=== PATIENT | male | born 1965 | race Caucasian/White ===

== ENCOUNTER → 2019-03-08 | Outpatient (CLI) | payer OTHER ==
[~2019-03-08] MED LIST: AMMONIUM LACTA227 GM T; BUMETANIDE1 MG PO; CARDIZEM30 MG PO; COREG25 MG PO; DIGOX125 MCG PO; DILTIAZEM CD240 MG PO; ELIQUIS5 M1 PO; KLOR-CON M1010 ME1 PO; LASIX40 MG PO; LEVAQUIN750 M1 PO; LISINOPRIL20 MG PO; MAGNESIUM OXID400 MG PO; METOPROLOL TAR100 M1 PO; METOPROLOL TART50 M1 PO; MINERAL OIL HEAV1 ML MC; NATURE'S BLEND F1 MG PO; POTASSIUM CHLO10 ME5 PO; POTASSIUM CHLO20 ME4 PO; PREDNISONE10 MG PO; VITAMIN B150 MG PO; Vitamin D PO
[2019-03-08 11:27] LABS: BASO % 0.6 % (0.0-1.0); EOS # 0.3 10*3/uL (0.0-0.4); EOS % 8.3 % (1.0-4.0); HEMATOCRIT 28.6 % (42.0-52.0); HEMOGLOBIN 8.9 g/dl (14.0-18.0); LYMPH % 29.6 % (27.0-41.0); MEAN CELL VOLUME 101.1 fl (80.0-94.0); MEAN CORPUSCULAR HGB 31.4 pg (27.0-31.0); MEAN CORPUSCULAR HGB CONC 31.1 g/dl (33.0-37.0); MEAN PLATELET VOLUME 10.2 fl (9.6-12.3); MONO # 0.5 10*3/uL (0.1-1.0); MONO % 14.9 % (3.0-9.0); NEUT # 1.6 10*3/uL (2.3-7.9); NEUT % 46.3 % (47.0-73.0); PLATELET COUNT AUTOMATED 116 10*3/uL (130-400); RED BLOOD COUNT 2.83 10*6/uL (4.50-5.90); RED CELL DISTRI WIDTH 14.5 % (0-14.5); WHITE BLOOD COUNT 3.5 10*3/uL (4.8-10.8)
[2019-03-08 11:47] LABS: CREATININE 1.51 mg/dL (0.70-1.30); POTASSIUM 5.1 mmol/L (3.5-5.1)
[2019-03-08 12:05] LABS: DIGOXIN 0.44 ng/ml (0.8-2.0)
== END | disposition home or self-care (01) ==
LOC: LAB 10:49
PROVIDERS: Internal Medicine
DX: E87.6 Hypokalemia (principal); E83.42 Hypomagnesemia; D53.9 Nutritional anemia, unspecified; I50.9 Heart failure, unspecified; R73.9 Hyperglycemia, unspecified

== ENCOUNTER → 2019-03-15 | Outpatient (CLI) | payer MEDICAID ==
[2019-03-15 13:39] LABS: HEMATOCRIT 27.5 % (42.0-52.0); HEMOGLOBIN 8.8 g/dl (14.0-18.0); MEAN CELL VOLUME 98.6 fl (80.0-94.0); MEAN CORPUSCULAR HGB 31.5 pg (27.0-31.0); MEAN PLATELET VOLUME 9.8 fl (9.6-12.3); PLATELET COUNT AUTOMATED 115 10*3/uL (130-400); RED BLOOD COUNT 2.79 10*6/uL (4.50-5.90); RED CELL DISTRI WIDTH 14.3 % (0-14.5); WHITE BLOOD COUNT 4.7 10*3/uL (4.8-10.8)
[2019-03-15 13:51] LABS: CREATININE 1.5 mg/dL (0.70-1.30); PHOSPHOROUS 4.2 mg/dL (2.5-4.9); POTASSIUM 4.5 mmol/L (3.5-5.1)
[2019-03-15 14:06] LABS: BASOPHILS 4 % (0-1); OVALOCYTES FEW; PLATELET SUFFICIENCY LOW (NORMAL); TOTAL CELLS COUNTED 100 #CELLS
== END | disposition home or self-care (01) ==
LOC: LAB 13:07
PROVIDERS: Nurse Practitioner Family
DX: E87.6 Hypokalemia (principal); E83.42 Hypomagnesemia; N17.9 Acute kidney failure, unspecified; D69.6 Thrombocytopenia, unspecified; D72.829 Elevated white blood cell count, unspecified; R94.4 Abnormal results of kidney function studies

== ENCOUNTER 2019-04-09 18:47 | Inpatient (IN) | payer MEDICAID ==
[2019-04-09] VITALS (7 sets, daily range): BP systolic 96–126; BP diastolic 26–59
[~2019-04-09] VITALS: Ht 160 cm; Wt 134.1 kg
--- NOTE | ~2019-04-09 | EKG ---
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1965 Requested By: SULEMAN KIRK Order Number: [id number] Reading MD: Sharath Ramírez Measurements Intervals [place] Rate: 77 P: MT: QRS: 62 QRSD: 100 T: 23 QT: 386 QTc: 437 Interpretive Statements Atrial rhythm Low voltage, precordial leads Consider anterior infarct Baseline wander in lead(s) V4 Compared to ECG 02/22/2019 21:35:12 Accelerated junctional rhythm now present Low QRS voltage now present Myocardial infarct finding now present Atrial fibrillation no longer present Ventricular premature complex(es) no longer present T-wave abnormality no longer present Electronically Signed On 04-11-2019 8:57:58 PDT by Sharath Ramírez CM:EKGRPT:ELECTROCARDIOGRAM REPORT [id number] SULEMAN LESTER DRAFT REPORT SULEMAN KIRK MD
--- NOTE | ~2019-04-09 | EKG ---
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1965 Requested By: SULEMAN KIRK Order Number: [id number] Reading MD: Sharath Ramírez Measurements Intervals [place] Rate: 87 P: 0 TX: 47 QRS: 94 QRSD: 108 T: 21 QT: 388 QTc: 467 Interpretive Statements Unknown rhythm, irregular rate Short TX interval Borderline right axis deviation Low voltage, precordial leads Abnormal R-wave progression, late transition Compared to ECG 02/22/2019 21:35:12 Short TX interval now present Low QRS voltage now present Atrial fibrillation no longer present Ventricular premature complex(es) no longer present T-wave abnormality no longer present Electronically Signed On 04-11-2019 8:57:31 PDT by Sharath Ramírez CM:EKGRPT:ELECTROCARDIOGRAM REPORT [id number] SULEMAN LESTER DRAFT REPORT SULEMAN KIRK MD
--- NOTE | ~2019-04-09 | PR ---
[place], [place] PROGRESS NOTE NAME: MICHEAL GARNETT UNIT #: [id number] ROOM: [facility]- DOCTOR: JAYLEEN SCHMITT,MELVIN Perez BIRTHDATE: [birth year] DOS: SUBJECTIVE: The patient was seen and examined. He is awake, alert. He feels well. Denies any complaints. He has good urine output. Hernandez remains. PHYSICAL EXAMINATION: VITAL SIGNS: Temperature 99.3, pulse 100, respiration 24, blood pressure 113/48. HEENT: Shows no JVD. LUNGS: Diminished breath sounds with no wheeze. HEART: S1, S2. No rub, thrill or gallop. ABDOMEN: Soft, nontender. EXTREMITIES: 2 to 3+ edema. LABORATORY DATA: Hemoglobin 7.1, white count of 3.3, platelets 72. Sodium 133, potassium 4.9, CO2 of 29, BUN 49, creatinine 2.2, glucose 99, calcium 8.4. ASSESSMENT AND PLAN: 1. Acute kidney injury with an unclear true baseline creatinine appears to be in the low 1s. The etiology seems likely related to prerenal factors. The patient's renal function continues to improve. Continue to hold diuretics for now. Replace electrolytes as needed. Avoid nephrotoxic agents. 2. Hyperkalemia. This has improved. Place on a fluid restriction. 3. Urinary tract infection. The patient is asymptomatic. With recent events and recent prolonged hospital stay treat with antibiotics as per the primary service. 4. Atrial fibrillation. Digoxin has been held. Management per Cardiology. Anemia. Transfuse as needed for hemoglobin less than 7. MELVIN CLEMENS MD CM:PNTRANS [id number] MELVIN CLEMENS MD 04/11/192327 interface
--- NOTE | ~2019-04-09 | CON ---
[place], [place] REPORT OF CONSULTATION [id number] UNIT #: [id number] ROOM: 519 DOCTOR: MELVIN CLEMENS MD BIRTHDATE: [birth year] DOS: 04/10/2019 NEPHROLOGY CONSULTATION REASON FOR CONSULTATION: Acute kidney injury/hyperkalemia. HISTORY OF PRESENT ILLNESS: This is a 53-year-old male comes with history of COPD, atrial fibrillation, CHF, hypertension, obesity. He presents to the hospital with complaint of shortness of breath and fatigue. It seems the patient recently was at an outside facility a few weeks ago with CHF exacerbation and apparent acute kidney injury, I am not clear of the details, however. The patient apparently been on a number of meds including potassium and diuretics, and yesterday he woke up feeling very weak and short of breath and as the day progressed, he felt worse; therefore, he came to the hospital. He was put on BiPAP in the Emergency Room and then felt better and then routine labs revealed the patient to have an elevated creatinine and potassium. Seems his initial potassium was 7.2 with a sodium of 129, BUN 53 and creatinine 4.1. He did receive medical management and potassium improved to 6.4. These labs are from this morning. His creatinine is little bit better at 2.9 as well. The patient was on daily digoxin and his levels seemed appropriate at 0.75. His urinalysis had some concerns for UTI. Seems he was given a liter of fluids with bicarbonate and admitted to the ICU. When I saw him, he was sitting in a chair and appeared very comfortable. He had a Hernandez catheter in place and was producing clear urine. He states he does feel better. He denied nausea, vomiting, fevers, or chills. When I was seeing him, labs were being drawn. The patient denies seeing a psychological operations specialist regularly. I did note his labs earlier this year showed creatinine levels in the low 1s, which is his presumed baseline. He states he only had seen a psychological operations specialist in [place] while in the hospital. ALLERGIES: No known drug allergies. HOME MEDICATIONS: Included Eliquis, Bumex, digoxin, Cardizem, folic acid, lisinopril, mag ox, metoprolol, potassium, and thiamine. PAST MEDICAL HISTORY: 1. Atrial fibrillation. 2. Coronary artery disease. 3. CHF. 4. COPD. 5. Hypertension. 6. Anemia. 7. Morbid obesity. 8. Psoriasis. 9. Thrombocytopenia. 10. Venous stasis changes. 11. Hand surgery. FAMILY HISTORY: There are no reports of chronic kidney disease, otherwise noncontributory. [place], [place] REPORT OF CONSULTATION NAME: MICHEAL GARNETT UNIT #: [id number] ROOM: [facility] DOCTOR: MELVIN CLEMENS MD BIRTHDATE: [birth year] SOCIAL HISTORY: Apparently, he has a history of alcohol abuse, but does not drink currently. There are reports of previous smoking as well as previous substance abuse including marijuana and cocaine. REVIEW OF SYSTEMS: As per HPI, otherwise a 10-point review of systems was reviewed and was negative. PHYSICAL EXAMINATION: VITAL SIGNS: Temperature 97.9, pulse 96, respiration rate 28, blood pressure 102/40. GENERAL: He is pleasant, awake, alert, sitting in a chair, in no acute distress. HEENT: Shows no JVD. Sclerae are anicteric. Mucous membranes appeared moist. Pharynx is clear. NECK: Supple. Trachea is midline. There is no neck lymphadenopathy or thyromegaly. LUNGS: Diminished breath sounds with no wheezes. No tactile fremitus. He is not using accessory muscles of respiration. HEART: S1, S2. No rub, thrill or gallop. ABDOMEN: Soft, nontender. There is no organomegaly or rigidity, rebound or guarding. There is no CVA tenderness. EXTREMITIES: There is 1-2+ edema. There is no lower extremity lymphadenopathy. Distal pulses are present. He looks like he has presence of lymphedema as well. Distal pulses were present. SKIN: Showed no overt rash. There was no petechia or purpura. Skin temperature is warm. NEUROLOGIC: Awake, alert, following commands. Cranial nerves intact. LABORATORY DATA: Hemoglobin 7.6, white count of 4.0, platelets 118. BUN 54, creatinine 3.9, sodium 132, potassium 6.4, CO2 of 24. These labs were from this morning, phosphorus 6.6, magnesium 2.0. IMPRESSION: 1. Acute kidney injury with an unclear true baseline creatinine, although appears to be in the low 1s. The etiology seems likely related to prerenal factors, possible acute tubular necrosis. 2. Hyperkalemia. 3. Hyponatremia, likely related to impaired free water excretion with his acute kidney injury. 4. History of congestive heart failure. 5. Questionable urinary tract infection. 6. Anemia with pancytopenia. 7. History of atrial fibrillation. 9. Chronic obstructive pulmonary disease. PLAN: 1. Would continue to hold diuretics for now. The patient did receive fluids. Can hold off on any more volume at this point. 2. Follow cultures. With his recent hospital stay, we checked gomez cultures and [place], [place] REPORT OF CONSULTATION NAME: MICHEAL GARNETT UNIT #: [id number] ROOM: [facility] DOCTOR: MELVIN CLEMENS MD BIRTHDATE: [birth year] rule out bacteremia, urosepsis. We would check a urine culture and blood cultures if not ordered. 3. Transfuse as needed. 4. Avoid hypotension. 5. Would hold digoxin. 6. Dose meds for creatinine clearance. 7. Continue medical management for hyperkalemia. 8. Continue to follow labs. Repeat labs are pending. Currently, there is no need for dialysis. Thank you for this consultation. We will follow with you. MELVIN CLEMENS MD CM:CONSTR:REPORT OF CONSULTATION 1431 04/23/19 0825 interface
--- NOTE | ~2019-04-09 | EKG ---
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1965 Requested By: SULEMAN KIRK Order Number: [id number] Reading MD: Sharath Ramírez Measurements Intervals [place] Rate: 67 P: 154 NC: 234 QRS: 125 QRSD: 119 T: 98 QT: 421 QTc: 445 Interpretive Statements Sinus or ectopic atrial rhythm Prolonged NC interval Nonspecific intraventricular conduction delay Low voltage, extremity and precordial leads Abnormal T, consider ischemia, lateral leads Compared to ECG 02/22/2019 21:35:12 Ectopic atrial rhythm now present First degree AV block now present Intraventricular conduction delay now present Low QRS voltage now present Possible ischemia now present Atrial fibrillation no longer present Ventricular premature complex(es) no longer presentT-wave abnormality still present Electronically Signed On 04-11-2019 8:56:43 PDT by Sharath Ramírez CM:EKGRPT:ELECTROCARDIOGRAM REPORT [id number] SULEMAN LESTER DRAFT REPORT SULEMAN KIRK MD
--- NOTE | ~2019-04-09 | CON ---
[place], [place] REPORT OF CONSULTATION NAME: MICHEAL GARNETT UNIT #: [id number] ROOM: 519 DOCTOR: KEMAL CALDERON MD BIRTHDATE: [birth year] DOS: 04/10/2019 CARDIOLOGY CONSULTATION REASON FOR CONSULTATION: Heart failure, elevated troponin. HISTORY OF PRESENT ILLNESS: The patient is a 53-year-old gentleman with history of atrial fibrillation, coronary artery disease, anemia, atrial fibrillation, was presented for shortness of breath. He was admitted to the hospital a couple of weeks ago for heart failure as well as organ failure. Apparently, the patient has woke up in the morning on 04/09/2019 and feeling weak and tired, but subsequently noted to have some short of breath with exertion and he was brought to the Emergency Room via ambulance and was admitted to the hospital and Cardiology consulted for further recommendations. He was treated with BiPAP in the Emergency Room, but he denies any chest pain, palpitations. No PND or orthopnea. No nausea, vomiting, diarrhea. No fever and chills. No cough, no hemoptysis. No genitourinary symptoms. No musculoskeletal symptoms. No neurologic symptoms. The patient is compliant with his medications. REVIEW OF SYSTEMS: Review of 10 systems negative except as mentioned above. Essentially, the patient denies any chest pain, palpitations, or PND. PAST MEDICAL HISTORY: 1. Coronary artery disease. 2. Paroxysmal atrial fibrillation. 3. Chronic diastolic heart failure. 4. Chronically elevated troponin. 5. Hypertension. 6. Chronic kidney disease. 7. Non-morbid obesity. 8. Psoriasis. 9. Chronic venous stasis with dermatitis. PAST SURGICAL HISTORY: History of hand surgery. SOCIAL HISTORY: The patient is a former smoker and former alcohol user, but currently does not drink, does not smoke. The patient has history of marijuana use. FAMILY HISTORY: Father has diabetes and mother has heart disease. ALLERGIES: No known drug allergies. HOME MEDICATIONS: Reviewed. Cardiac medications include Eliquis, Bumex, digoxin, Cardizem, metoprolol, lisinopril and potassium chloride. PHYSICAL EXAMINATION: VITAL SIGNS: Blood pressure 102/46, pulse 96, respiratory rate was 24, weight 136.5 kilos, BMI 53.3. GENERAL: Alert, comfortable, in no acute distress. [place], [place] REPORT OF CONSULTATION NAME: MICHEAL GARNETT UNIT #: [id number] ROOM: 519 DOCTOR: KEMAL CALDERON MD BIRTHDATE: [birth year] HEENT: Pupils are round and equal. No jaundice. Tongue was moist and pharynx clear. NECK: Supple. No distended neck veins. No carotid bruit. CHEST: Symmetrical, nontender. LUNGS: A few scattered rhonchi and diminished at bases. HEART: Slightly irregular. No S3. Grade 1/6 systolic murmur. ABDOMEN: Obese, nontender. Bowel sounds normal. EXTREMITIES: Showed the patient had positive for edema and also chronic stasis dermatitis. Distal pulses are fair. SKIN: Warm. No cyanosis. RECTAL: Deferred. GENITOURINARY: Deferred. NEUROLOGIC: The patient is alert with no focal neurologic deficit. PSYCHIATRIC: The patient is alert with good mood and affect. REVIEW OF THE DIAGNOSTIC TESTS: EKG, labs, and imaging studies reviewed. Pertinent labs including WBC count 4000, hemoglobin 7.6, platelets 118,000. Potassium 6.8, BUN 54, creatinine 3.9. Cardiac troponins are 0.072, 0.72, 0.054. His cardiac troponins are elevated in December, January and February of 2018. IMPRESSION: 1. Acute on chronic diastolic heart failure. 2. Borderline elevation of troponin, which is chronic. In fact, his levels are slightly less than previous admissions in December, January and February of 2018. 3. Acute on chronic respiratory failure. 4. Acute on chronic renal failure. 5. Hyperkalemia. 6. Paroxysmal atrial fibrillation. 7. Coronary artery disease. 8. Severe anemia. 9. Thrombocytopenia. 10. Morbid obesity. 11. Chronic stasis dermatitis. RECOMMENDATIONS: 1. The patient appears to be stable from a cardiac standpoint. 2. Continue Eliquis and I would resume his beta odin at lower dose. 3. Discontinue his Cardizem since the patient noted to have occasional bradycardia and low blood pressure. 4. Hold his Bumex for today and then decide about diuretics tomorrow based on his symptoms and his renal function as per renal consultants who were on case for his acute on chronic kidney disease. 5. The patient may need packed red blood cell transfusion based on his next lab workup for his low hemoglobin. 6. No family at bedside at the time of my examination. 7. No further cardiac testing at this time. [place], [place] REPORT OF CONSULTATION NAME: MICHEAL GARNETT UNIT #: [id number] ROOM: [facility] DOCTOR: KVNG SCHMITT,KEMAL BIRTHDATE: [birth year] KEMAL CALDERON MD CM:CONSTR:REPORT OF CONSULTATION 1638 04/26/19 0733 interface
--- NOTE | ~2019-04-09 | PR ---
[place], [place] PROGRESS NOTE NAME: MICHEAL GARNETT UNIT #: [id number] ROOM: [facility] DOCTOR: KEMAL CALDERON MD BIRTHDATE: [birth year] DOS: 04/11/2019 REASON FOR VISIT: Heart failure and elevated troponin. SUBJECTIVE: The patient is feeling better. Denies any chest pain. Breathing is much better. No PND or orthopnea. No nausea, vomiting, no palpitations or dizziness. No neurologic symptoms. No bladder or bowel symptoms. REVIEW OF SYSTEMS: Review of 10 systems negative except as mentioned above. PHYSICAL EXAMINATION: VITAL SIGNS: Blood pressure 107/56, pulse 100, respiratory rate 20, weight 133 kg, BMI 52. Rhythm strips, patient in atrial fibrillation with rates around 100. GENERAL: Alert, comfortable, in no acute distress. HEENT: Pupils are round and equal. No jaundice. Tongue is moist and pharynx clear. NECK: Supple, no distended neck veins. No carotid bruit. CHEST: Symmetrical, nontender. LUNGS: Clear to auscultation bilaterally. HEART: Irregularly irregular, grade 1/6 systolic murmur. ABDOMEN: Obese, nontender. EXTREMITIES: Showed chronic stasis dermatitis as well as edema. Distal pulses are fair. SKIN: Warm and dry. NEUROLOGIC: The patient is alert with no focal neurologic deficit. RECTAL: Deferred. GENITOURINARY: Deferred. MEDICATIONS AND LABS: Reviewed. Hemoglobin 7.1, creatinine 2.2. IMPRESSION: 1. Acute on chronic heart failure with preserved ejection fraction. 2. Borderline elevation of troponin, chronic due to chronic kidney disease. The patient has no chest pain. 3. Anemia. The patient is scheduled to receive packed red blood cells today. 4. Coronary artery disease. 5. Chronic kidney disease. 6. Morbid obesity. 7. Acute on chronic respiratory failure. 8. Continue above medications. 9. No further cardiac testing. 10. There is no family at bedside at the time of examination. [place], [place] PROGRESS NOTE NAME: MICHEAL GARNETT UNIT #: [id number] ROOM: [facility] DOCTOR: KEMAL CALDERON MD BIRTHDATE: [birth year] KEMAL CALDERON MD CM:PNTRANS [id number] KEMAL CALDERON MD 04/11/19 2345 interface
[~2019-04-09 18:47] MED LIST changes: -METOPROLOL TART50 M1 PO; -POTASSIUM CHLO10 ME5 PO
[2019-04-09 19:12] LABS: BASO % 0.8 % (0.0-1.0); EOS # 0.1 10*3/uL (0.0-0.4); EOS % 2.1 % (1.0-4.0); HEMATOCRIT 26.8 % (42.0-52.0); HEMOGLOBIN 8.3 g/dl (14.0-18.0); LYMPH % 21.8 % (27.0-41.0); MEAN CELL VOLUME 102.7 fl (80.0-94.0); MEAN CORPUSCULAR HGB 31.8 pg (27.0-31.0); MEAN PLATELET VOLUME 10.4 fl (9.6-12.3); MONO # 0.6 10*3/uL (0.1-1.0); MONO % 12.3 % (3.0-9.0); NEUT % 62.4 % (47.0-73.0); PLATELET COUNT AUTOMATED 137 10*3/uL (130-400); RED BLOOD COUNT 2.61 10*6/uL (4.50-5.90); RED CELL DISTRI WIDTH 15.4 % (0-14.5); WHITE BLOOD COUNT 4.8 10*3/uL (4.8-10.8)
[2019-04-09 19:17] LABS: ABG BASE EXCESS -4.9 mmol/L (-2.0-2.0); ABG HCO3 20.4 mmol/l (22-26); ABG O2 SATURATION 99.2 % (95-97); ARTERIAL BLOOD GAS PCO2 40.6 mmHg (35-45); ARTERIAL BLOOD GAS PH 7.319 (7.35-7.45)
--- NOTE | 2019-04-09 19:17 | NUR ---
REPORT GIVEN TO RADHA AMOS AT THIS TIME.
--- NOTE | 2019-04-09 19:20 | NUR ---
pt palced on bipap / back up rate of 8 tolerateing well
[2019-04-09 19:25] LABS: ACT PARTIAL THROMBO TIME 36.1 SECONDS (20.0-32.1); INTERNATIONAL NORM RATIO 1.4 (2.0-3.5)
[2019-04-09 19:42] LABS: CREATININE 3.97 mg/dL (0.70-1.30); TOTAL PROTEIN 8.8 gm/dL (6.4-8.2)
[2019-04-09 19:45] LABS: POTASSIUM 7.9 mmol/L (3.5-5.1)
[2019-04-09 19:46] LABS: TROPONIN I 0.072 ng/ml (<0.045)
--- NOTE | 2019-04-09 19:49 | NUR ---
DR. OLSON NOTIFIED OF CRITICAL POTASSIUM AND TROPONIN LEVELS.
[2019-04-09 19:53] LABS: BILIRUBIN 1+ (NEGATIVE); BLOOD 3+ (NEGATIVE); CLARITY CLOUDY (CLEAR); COLOR YELLOW (YELLOW); GLUCOSE NEGATIVE (NEGATIVE); KETONE NEGATIVE (NEGATIVE); LEUKO ESTERASE 3+ (NEGATIVE); NITRITE NEGATIVE (NEGATIVE); PH 5.5 (5.0-9.0); SPECIFIC GRAVITY >= 1.030 (1.005-1.030)
[2019-04-09 20:14] LABS: WBC TNTC wbc/hpf (0-5)
[2019-04-09 20:15] LABS: BACTERIA 2+
--- NOTE | 2019-04-09 20:17 | NUR ---
DR. OLSON NOTIFIED OF PATIENTS MANUAL BLOOD PRESSURE.
--- NOTE | 2019-04-09 21:31 | NUR ---
PATIENTS BIPAP DISCONTINUED AT THIS TIME. PLACED ON NC 5LNC. PATIENT TOELRATING WELL. BED IN LOW POSITION, SIDE RAILS UPX2, CALL LIGHT IN REACH.
--- NOTE | 2019-04-09 21:34 | NUR ---
[facility] REQUESTS PATIENT REMAIN IN ED FOR APPROXIMATELY 30 MINUTES THEY ARE DEALING WITH A CRITICAL PATIENT AT THIS TIME.
--- NOTE | 2019-04-09 21:46 | NUR ---
PATIENT REFUSES TO HAVE BUTTOCKS EXAMINED FOR WOUNDS. [facility] POLICY EXPLAINED TO PATIENT. PATIENT INSISTS THAT HE HAS NO WOUNDS TO BUTTOCKS/COYXCC AREA. STATES THAT HE ONLY HAS WOUNDS TO LEFT LOWER EXTREMITY.
[2019-04-09] MEDS ORDERED: BUMETANIDE1 MG PO (22:33)
[2019-04-09] MEDS ORDERED: MAGNESIUM OXID400 MG PO (22:34)
--- NOTE | 2019-04-09 23:00 | NUR ---
A 53, admitted to [facility], under the services of JADIEL Macario DO with a diagnosis of ACUTE RESPIRATORY,HYPERKALEMIA,ACUTE RENAL FAILURE. Chief complaint is SHORTNESS OF BREATH. Patient arrived via stretcher from ER. Monitor applied. Initial assessment completed. Vital signs taken and recorded. JADIEL MACARIO DO notified of admission to the unit. Orders received. See assessment for past medical history, medications and allergies. Patient and/or family oriented to unit. [facility] visitation policy reviewed. Clothing/patient valuable form completed. KEAGAN VIVAR
[2019-04-10] VITALS: BP 100/40
[2019-04-10 00:28] LABS: CREATININE 4.1 mg/dL (0.70-1.30)
[2019-04-10 00:32] LABS: POTASSIUM 7.2 mmol/L (3.5-5.1)
--- NOTE | 2019-04-10 00:38 | NUR ---
CONTACTED DR. KRISHNAN'S OFFICE FOR CONSULT.
[2019-04-10 03:59] VITALS: BP 115/42
--- NOTE | 2019-04-10 05:06 | NUR ---
PATIENT MOVED TO RECLINER CHAIR TO BE MORE COMFORTABLE. PATIENT ALSO STATED THAT HE THINKS SOMETHING IS WRONG WITH THE CATH, BUT ITS DRAINING NORMAL. HE STATES THAT HE THINKS ITS TOO BIG, I OFFERED TO REPLACE IT, BUT PATIENT REFUSED.
[2019-04-10 05:20] LABS: ALBUMIN 2.8 gm/dl (3.1-4.5); CREATININE 3.9 mg/dL (0.70-1.30); PHOSPHOROUS 6.6 mg/dL (2.5-4.9); TOTAL PROTEIN 8.3 gm/dL (6.4-8.2)
[2019-04-10 05:22] LABS: POTASSIUM 6.4 mmol/L (3.5-5.1)
[2019-04-10 05:31] LABS: DIGOXIN 0.75 ng/ml (0.8-2.0); THYROID STIM HORMONE (HS) 3.07 uIU/ml (0.358-4.75)
[2019-04-10 05:58] LABS: BASO % 0.5 % (0.0-1.0); EOS # 0.1 10*3/uL (0.0-0.4); EOS % 2.5 % (1.0-4.0); HEMATOCRIT 24.9 % (42.0-52.0); HEMOGLOBIN 7.6 g/dl (14.0-18.0); LYMPH # 1.1 10*3/uL (1.3-4.4); LYMPH % 27.7 % (27.0-41.0); MEAN CELL VOLUME 102.9 fl (80.0-94.0); MEAN CORPUSCULAR HGB 31.4 pg (27.0-31.0); MEAN CORPUSCULAR HGB CONC 30.5 g/dl (33.0-37.0); MEAN PLATELET VOLUME 10.2 fl (9.6-12.3); MONO # 0.4 10*3/uL (0.1-1.0); MONO % 8.7 % (3.0-9.0); NEUT # 2.4 10*3/uL (2.3-7.9); NEUT % 59.6 % (47.0-73.0); PLATELET COUNT AUTOMATED 118 10*3/uL (130-400); RED BLOOD COUNT 2.42 10*6/uL (4.50-5.90); RED CELL DISTRI WIDTH 15.3 % (0-14.5)
--- NOTE | 2019-04-10 06:23 | NUR ---
CONSULT CALLED TO DR. BILLS'S OFFICE.
--- NOTE | 2019-04-10 06:30 | NUR ---
PATIENTS HR UP TO 140 IN AFIB, CONTACTED DR. SHAH, NEW ORDERS RECEIVED.
[2019-04-10 06:45] LABS: INTERNATIONAL NORM RATIO 1.3 (2.0-3.5)
[2019-04-10 07:59] VITALS: BP 96/51
[2019-04-10] MEDS ORDERED: POTASSIUM CHLO10 ME5 PO (08:30)
--- NOTE | 2019-04-10 09:30 | NUR ---
SHIKHA PO HELD AT THIS TIME DUE TO LOW HR IN THE 50'S AT TIMES. DR ELIZALDE AWARE AND AWAITING CARDIOLOGY TO SEE PT TODAY.
[2019-04-10 12:00] VITALS: BP 102/40
--- NOTE | 2019-04-10 14:06 | NUR ---
DR CLEMENS IN TO SEE PT.
--- NOTE | 2019-04-10 14:06 | NUR ---
DR CALDERON IN TO SEE PT.
[2019-04-10 14:19] LABS: BASO % 0.3 % (0.0-1.0)
[2019-04-10 14:45] LABS: CREATININE 3.28 mg/dL (0.70-1.30)
[2019-04-10 14:47] LABS: POTASSIUM 5.4 mmol/L (3.5-5.1)
[2019-04-10 16:00] VITALS: BP 90/32
[2019-04-10 16:42] LABS: EOS # 0.1 10*3/uL (0.0-0.4); EOS % 2.3 % (1.0-4.0); LYMPH # 0.6 10*3/uL (1.3-4.4); LYMPH % 16.3 % (27.0-41.0); MEAN CELL VOLUME 101.6 fl (80.0-94.0); MEAN CORPUSCULAR HGB 31.5 pg (27.0-31.0); MEAN PLATELET VOLUME 9.8 fl (9.6-12.3); MONO # 0.3 10*3/uL (0.1-1.0); MONO % 9.3 % (3.0-9.0); NEUT # 2.5 10*3/uL (2.3-7.9); NEUT % 71.2 % (47.0-73.0); RED BLOOD COUNT 2.48 10*6/uL (4.50-5.90); RED CELL DISTRI WIDTH 15.2 % (0-14.5); WHITE BLOOD COUNT 3.4 10*3/uL (4.8-10.8)
[2019-04-10 17:10] LABS: HEMATOCRIT 25.7 % (42.0-52.0)
[2019-04-10 17:29] LABS: PLATELET COUNT AUTOMATED 94 10*3/uL (130-400)
--- NOTE | 2019-04-10 19:49 | NUR ---
PATIENT SITTING IN THE BEDSIDE CHAIR WITH NC APPLIED AT 3LPM. PATIENT DENIES ANY PAIN, DISCOMFORT OR SHORTNESS OF BREATHE. PATIENT VERBALIZES DECREASED APPETITE BUT CONSUMES 100% OF DINNER W/O DIFFICULTY. PATIENT IS ABLE TO TRANSFER FROM CHAIR TO BSC W/O DIFFICULTY. ALTAMIRANO PATENT FOR [place] COLORED URINE. CALL LIGHT WITHIN REACH. SEE ASSESSMENT.
[2019-04-10 20:00] VITALS: BP 86/54
--- NOTE | 2019-04-10 20:39 | NUR ---
SPOKE WITH DR. CONTRERAS REGARDING LOTION FOR DRY SKIN ON PATIENT LEGS TO PREVENT BREAKDOWN. ORDERS RECEIVED.
[2019-04-11] VITALS (11 sets, daily range): BP systolic 93–113; BP diastolic 33–56
[2019-04-11 04:38] LABS: BASO % 0.3 % (0.0-1.0); EOS # 0.1 10*3/uL (0.0-0.4); EOS % 1.8 % (1.0-4.0); HEMATOCRIT 23.1 % (42.0-52.0); HEMOGLOBIN 7.1 g/dl (14.0-18.0); LYMPH # 0.8 10*3/uL (1.3-4.4); LYMPH % 23.4 % (27.0-41.0); MEAN CELL VOLUME 101.8 fl (80.0-94.0); MEAN CORPUSCULAR HGB 31.3 pg (27.0-31.0); MEAN CORPUSCULAR HGB CONC 30.7 g/dl (33.0-37.0); MEAN PLATELET VOLUME 9.2 fl (9.6-12.3); MONO # 0.4 10*3/uL (0.1-1.0); MONO % 11.1 % (3.0-9.0); NEUT # 2.1 10*3/uL (2.3-7.9); NEUT % 63.1 % (47.0-73.0); PLATELET COUNT AUTOMATED 72 10*3/uL (130-400); RED BLOOD COUNT 2.27 10*6/uL (4.50-5.90); RED CELL DISTRI WIDTH 15.1 % (0-14.5); WHITE BLOOD COUNT 3.3 10*3/uL (4.8-10.8)
[2019-04-11 04:51] LABS: CREATININE 2.21 mg/dL (0.70-1.30); POTASSIUM 4.9 mmol/L (3.5-5.1)
--- NOTE | 2019-04-11 08:15 | NUR ---
PT UPDATED ON PLAN OF CARE AND ORDER FOR BLOOD TRANSFUSION. PT VERBALIZED UNDERSTANDING.
--- NOTE | 2019-04-11 08:34 | NUR ---
INFORMED CONENT FOR BLOOD RECEIVED FROM PT.
--- NOTE | 2019-04-11 09:25 | NUR ---
BLOOD TRANSFUSION STARTED AFTER PT INSTRUCTED ON S/S TRANSFUSION REACTION AND TO NOTIFY RN IF ANY OCCUR. PT VERBALIZED UNDERSTANDING.
--- NOTE | 2019-04-11 10:01 | NUR ---
DR ELIZALDE IN TO SEE PT. UPDATED HIM ON PT'S CONDITION.
--- NOTE | 2019-04-11 10:50 | NUR ---
PT TOLERATING BLOOD TRANSFUSION WELL AT THIS TIME. WILL CONTINUE TO MONITOR PT. DR ELIZALDE NOTIFIED OF AJITH LÓPEZ HELD WHEN HE ROUNDED ON PT.
--- NOTE | 2019-04-11 11:45 | NUR ---
PT CONTINUES TO SIT IN THE RECLINER CHAIR. PT DENIES COMPLAINTS AT THIS TIME. BLOOD INFUSING WITHOUT DIFFICULTIES. VSS. WILL CONTINUE TO MONITOR PT.
--- NOTE | 2019-04-11 12:58 | NUR ---
BLOOD TRANSFUSION COMPLETED. PT TOLERATED PROCEDURE WELL.
[2019-04-11 15:19] LABS: BASO % 0.5 % (0.0-1.0); EOS # 0.1 10*3/uL (0.0-0.4); EOS % 2.3 % (1.0-4.0); HEMATOCRIT 27.4 % (42.0-52.0); HEMOGLOBIN 8.5 g/dl (14.0-18.0); LYMPH # 0.7 10*3/uL (1.3-4.4); LYMPH % 18.8 % (27.0-41.0); MEAN CELL VOLUME 101.1 fl (80.0-94.0); MEAN CORPUSCULAR HGB 31.4 pg (27.0-31.0); MEAN PLATELET VOLUME 10.4 fl (9.6-12.3); MONO # 0.5 10*3/uL (0.1-1.0); MONO % 13.1 % (3.0-9.0); NEUT # 2.5 10*3/uL (2.3-7.9); PLATELET COUNT AUTOMATED 93 10*3/uL (130-400); RED BLOOD COUNT 2.71 10*6/uL (4.50-5.90); RED CELL DISTRI WIDTH 15.9 % (0-14.5); WHITE BLOOD COUNT 3.8 10*3/uL (4.8-10.8)
--- NOTE | 2019-04-11 20:04 | NUR ---
PT. RESTING IN CHAIR, FAMILY AT BEDSIDE. HEP LOCK IN LH ASYMPT. LUNGS DIMINISHED BILAT, PULSE OX 99% ON RA. ABDOMEN SOFTLY DISTENDED AND NORMO. 2-3+BLE EDEMA NOTED. RESP. EASY AND REG NO DISTRESS. LENORA HODGES RN
--- NOTE | 2019-04-11 20:26 | NUR ---
PT. STATED HE GOT WASHED UP IN CHAIR TODAY ON DAYLIGHT. LENORA HODGES RN
--- NOTE | 2019-04-11 21:23 | NUR ---
PT. GIVEN RESTORIL AT 2116 PER PTS REQUEST FOR SLEEP AIDE.
--- NOTE | 2019-04-11 22:04 | NUR ---
PT. SLEEPING, RESTORIL EFFECTIVE. LENORA HODGES RN
[2019-04-12] VITALS: BP 95/43
[2019-04-12 04:00] VITALS: BP 103/44
[2019-04-12 05:36] LABS: ALBUMIN 2.5 gm/dl (3.1-4.5); ALKALINE PHOSPHATASE 102 U/L (45-117); CHLORIDE 104 mmol/L (98-107); CREATININE 1.29 mg/dL (0.70-1.30); SGOT/AST 27 IU/L (3-35); SGPT/ALT 17 U/L (12-78); SODIUM 136 mmol/L (136-145); TOTAL PROTEIN 7.9 gm/dL (6.4-8.2)
[2019-04-12 05:47] LABS: BUN 33 mg/dl (7-24)
[2019-04-12 06:10] LABS: BASO % 0.6 % (0.0-1.0); EOS # 0.1 10*3/uL (0.0-0.4); EOS % 2.8 % (1.0-4.0); HEMATOCRIT 28.7 % (42.0-52.0); HEMOGLOBIN 8.8 g/dl (14.0-18.0); LYMPH # 0.8 10*3/uL (1.3-4.4); LYMPH % 26.2 % (27.0-41.0); MEAN CELL VOLUME 101.8 fl (80.0-94.0); MEAN CORPUSCULAR HGB 31.2 pg (27.0-31.0); MEAN CORPUSCULAR HGB CONC 30.7 g/dl (33.0-37.0); MEAN PLATELET VOLUME 10.4 fl (9.6-12.3); MONO # 0.3 10*3/uL (0.1-1.0); MONO % 10.6 % (3.0-9.0); NEUT # 1.9 10*3/uL (2.3-7.9); NEUT % 59.5 % (47.0-73.0); PLATELET COUNT AUTOMATED 88 10*3/uL (130-400); RED BLOOD COUNT 2.82 10*6/uL (4.50-5.90); RED CELL DISTRI WIDTH 15.5 % (0-14.5); WHITE BLOOD COUNT 3.2 10*3/uL (4.8-10.8)
[2019-04-12 08:00] VITALS: BP 118/51
--- NOTE | 2019-04-12 09:00 | NUR ---
Revenue Inspector in to talk to patient. Patient states lives at home with his son. There are 6 steps in the home. Physician: Chris Corcoran [facility]acy: [facility] Home health services: none Patient's level of ADLs: INDEPENDENT Patient has working utilities: yes DME: none Follow-up physician's appointment after d/c: will be made by the hospitalist nurse director upon discharge Does patient want to access PORTAL?: no Discharge plan discussed with patient. He lives at home with his son. He is independent in his ADLs and ambulation. Discussed home health care services and he denies any home needs at this time. When medically stable he will be discharged to home. His son will transport on discharge. JANIE ZACARIAS
--- NOTE | 2019-04-12 10:59 | NUR ---
MICHEAL GARNETT [id number] Please refer to the physician's history and physical for past medical history, comorbid conditions, and allergies. Diagnosis: ACUTE RESPIRATORY FAILURE ANEMIA COPD Sachin Score: 18,LOW OR NO RISK WOUND DESCRIPTIONS: Wound Number: 1 Location of the wound: left leg inner calf Thickness: Partial Size: 4cm X 6cm X <0.1cm Tunneling: none Undermining: none Sinus Tract: none Presence of Exudate: Serous Amount: Light Color: Brown Odor: None Periwound Skin Appearance: dry Wound edges: approximated. Pain (associated with wound): denied at time of assessment How does patient state this happened? patient states he has seen Dr. Feng in the wound care center with in the last month. If wound is on legs/feet or hands, capillary refill time, pulses, color temp, sensation: cap refill < 3 seconds. Wound Number: 2 Location of the wound: left leg outer calf Thickness: Partial Size: 12.5cm X 3cm X 0.1cm Tunneling: none Undermining: none Sinus Tract: none Presence of Exudate: Serous Amount: Light Color: Brown Odor: None Periwound Skin Appearance: dry Wound edges: approximated Pain (associated with wound): denied at time of assessment How does patient state this happened? patient states he has seen Dr. Feng in the wound care center with in the last month. If wound is on legs/feet or hands, capillary refill time, pulses, color temp, sensation: cap refill < 3 seconds. wound #3 right leg outer calf 3 partial thickness pin point areas noted. No drainage at time of assessment. Patient denied pain to this area. Dry skin noted. Surface the patient is resting on: XPRT SKIN PREVENTION RECOMMENDATION: 1. Pressure redistribution support surface as appropriate 2. Elevate heels 3. Remove boots/TEDS every shift and reapply 4. Head of bed 30 degrees as tolerated 5. Assess nutrition and hydration 6. Manage moisture 7. Avoid the use of containment devices while in bed 8. Use absorptive products on surfaces limit layers of linens on bed 9. Turn and reposition every 1-2 hours in bed and every 1 hour in chair as tolerated 10. Weight shifts every 15 minutes while up in chair 11. Offloading with pillows or device to keep heels elevated off bed 12. Monitor skin at least every shift 13. Inspect under medical devices twice a day WOUND TREATMENT RECOMMENDATIONS: Continue Lac Hydrin order to dry areas to BLE. Patient stated that he would call to make a follow up appointment in the Wound Care Center if needed when discharged.
[2019-04-12 12:00] VITALS: BP 110/49
--- NOTE | 2019-04-12 14:46 | NUR ---
Nutritional Support Services Note: Attempted to see pt 3 times, each time he was asleep and when trying to wake him, he opened his eyes once and went back to sleep. Recommend Ensure TID to promote wound healing process and improve overall nutritional status. Kuldeep Biswas Routing Machine Operator Dietitian
[2019-04-12 16:00] VITALS: BP 108/46
--- NOTE | 2019-04-12 19:48 | NUR ---
PT. REFUSING BATH AT THIS TIME.
--- NOTE | 2019-04-12 19:51 | NUR ---
PT. UP IN CHAIR, AMIODORONE DRIP CONTINUES ORDERED VIA RAN, PT. COMPLAINTS OF PAIN AT LW SITE. AMIODORONE DRIP SWITCHED TO NEW SITE IN RAN, HEP LOCK IN LW FLUSHED WELL, NO BLOOD RETURN NOTED. ABDOMEN SOFTLY DISTENDED AND NORMO. ALTAMIRANO CATH DRAINING A CLEAR RENO URINE. 2-3+BLE EDEMA NOTED. LENORA HODGES RN
[2019-04-12 20:00] VITALS: BP 125/58
--- NOTE | 2019-04-12 22:37 | NUR ---
PT. GIVEN RESTORIL AND NORCO ORDERED FOR COMPLAINTS OF GENERALIZED ACHES AND PAINS AND INABILITY TO SLEEP. CURRENTLY WATCHING TV BUT STATES DISCOMFORT MUCH BETTER, RESTORIL INEFFECTIVE AND NORCO EFFECTIVE. LENORA HODGES RN
[2019-04-13] VITALS (9 sets, daily range): BP systolic 109–144; BP diastolic 56–74
[2019-04-13 05:19] LABS: CHLORIDE 105 mmol/L (98-107); CREATININE 0.97 mg/dL (0.70-1.30); POTASSIUM 4.6 mmol/L (3.5-5.1); SODIUM 136 mmol/L (136-145)
[2019-04-13 05:20] LABS: BUN 22 mg/dl (7-24)
[2019-04-13 06:02] LABS: BASO % 0.7 % (0.0-1.0); EOS # 0.1 10*3/uL (0.0-0.4); HEMATOCRIT 26.4 % (42.0-52.0); HEMOGLOBIN 8.1 g/dl (14.0-18.0); LYMPH # 0.8 10*3/uL (1.3-4.4); LYMPH % 25.7 % (27.0-41.0); MEAN CELL VOLUME 101.1 fl (80.0-94.0); MEAN CORPUSCULAR HGB CONC 30.7 g/dl (33.0-37.0); MEAN PLATELET VOLUME 10.7 fl (9.6-12.3); MONO # 0.3 10*3/uL (0.1-1.0); NEUT # 1.8 10*3/uL (2.3-7.9); NEUT % 61.3 % (47.0-73.0); PLATELET COUNT AUTOMATED 80 10*3/uL (130-400); RED BLOOD COUNT 2.61 10*6/uL (4.50-5.90); RED CELL DISTRI WIDTH 15.2 % (0-14.5)
--- NOTE | 2019-04-13 11:41 | NUR ---
Faxed palliative care order to [facility]. Yudy, community palliative nurse, notified.
--- NOTE | 2019-04-13 11:47 | NUR ---
[facility] CONSULT FOR PALLITIVE CARE COMPLETED, OFFICE AWARE.
--- NOTE | 2019-04-13 14:17 | NUR ---
Karla Lira called and stated patient would like to think about palliative care on discharge.
--- NOTE | 2019-04-13 22:51 | NUR ---
PATIENT RESTING IN CHAIR AT BEDSIDE WITH NO NEEDS MADE. BED IN LOWEST POSITION, CALL LIGHT IN REACH
--- NOTE | 2019-04-13 23:26 | NUR ---
24 HR chart check completed.
[2019-04-14] VITALS (9 sets, daily range): BP systolic 98–141; BP diastolic 43–88
[2019-04-14 06:20] LABS: BASO % 0.6 % (0.0-1.0); EOS # 0.1 10*3/uL (0.0-0.4); EOS % 4.3 % (1.0-4.0); HEMATOCRIT 27.1 % (42.0-52.0); HEMOGLOBIN 8.3 g/dl (14.0-18.0); LYMPH # 0.8 10*3/uL (1.3-4.4); LYMPH % 24.3 % (27.0-41.0); MEAN CELL VOLUME 100.4 fl (80.0-94.0); MEAN CORPUSCULAR HGB 30.7 pg (27.0-31.0); MEAN CORPUSCULAR HGB CONC 30.6 g/dl (33.0-37.0); MEAN PLATELET VOLUME 9.5 fl (9.6-12.3); MONO # 0.3 10*3/uL (0.1-1.0); MONO % 8.6 % (3.0-9.0); NEUT % 61.6 % (47.0-73.0); PLATELET COUNT AUTOMATED 73 10*3/uL (130-400); RED CELL DISTRI WIDTH 14.9 % (0-14.5); WHITE BLOOD COUNT 3.3 10*3/uL (4.8-10.8)
--- NOTE | 2019-04-14 06:22 | NUR ---
DR SHAH'S ANSWERING SERVICE CALLED AT THIS TIME REGARDING BLOOD PRESSURES. AWAITING CALL BACK
--- NOTE | 2019-04-14 06:28 | NUR ---
ATTEMPTED TO CALL RESIDENT REGARDING BLOOD PRESSURE. NO ANSWER
--- NOTE | 2019-04-14 06:31 | NUR ---
SPOKE WITH DR CONTRERAS REGARDING BLOOD PRESSURES. STATES TO TURN CARDIZEM OFF AT THIS TIME.
[2019-04-14 06:45] LABS: BUN 19 mg/dl (7-24); CHLORIDE 105 mmol/L (98-107); CREATININE 0.93 mg/dL (0.70-1.30); POTASSIUM 4.7 mmol/L (3.5-5.1); SODIUM 136 mmol/L (136-145)
--- NOTE | 2019-04-14 07:15 | NUR ---
Patient resting quietly with no c/o discomfort. Respirations easy and regular. Vital signs stable. No overt distress. YING TANNER
--- NOTE | 2019-04-14 07:34 | NUR ---
spoke with dr frazier regarding cardizem drip. states to give the 10am lopressor now and leave the cardizem drip off.
--- NOTE | 2019-04-14 08:00 | NUR ---
24 HR chart check completed.
--- NOTE | 2019-04-14 09:00 | NUR ---
Senior Art Director in to see patient. No new needs or request at this time. He denies any home needs. When medically stable he will be discharged to home.
--- NOTE | 2019-04-14 09:47 | NUR ---
Spoke to Ilene, pharmacist, at [facility] [phone] regarding cost of Eliquis 5 mg po BID. Will check cost and return call. Awaiting return call.
--- NOTE | 2019-04-14 10:44 | NUR ---
Spoke to Ilene, pharmacist, at [facility] regarding cost of Eliquis 5 mg po BID. Pharmacy has no insurance on file. Patient would need to being his insurance cards to [facility]. Discount care cost would be $481.36. Cost at the hospital pharmacy is $95 for 30 days.
--- NOTE | 2019-04-14 11:39 | NUR ---
MEDICATED WITH PO ATIVAN ORDERED PER PT REQUEST FOR C/O ANXIETY.
--- NOTE | 2019-04-14 13:58 | NUR ---
MEDICATION EFFECTIVE FOR ANXIETY.
[2019-04-14] MEDS ORDERED: METOPROLOL TART50 M1 PO (17:02)
--- NOTE | 2019-04-14 18:05 | NUR ---
LEAVING IN CARE OF PA VIA WHEELCHAIR TO FRONT DOOR AND CAB.
== END 2019-04-14 18:05 | disposition home or self-care (01) | DRG 682 ==
LOC: ED 18:47 → ICCU 21:28 → EDHOLD 21:28 → ICCU 21:36 → 5E 04-13 11:41
PROVIDERS: Emergency Medicine; Emergency Medicine Emergency Medical Services; Internal Medicine; Student in an Organized Health Care Education/Training Program; ADMIT Emergency Medicine
PROC: 5A09357 Assistance with Respiratory Ventilation, Less than 24 Consecutive Hours, Continuous Positive Airway Pressure (ICD-10-PCS; principal; 2019-04-09)
PROC: 30233N1 Transfusion of Nonautologous Red Blood Cells into Peripheral Vein, Percutaneous Approach (ICD-10-PCS; 2019-04-11)
DX: N17.0 Acute kidney failure with tubular necrosis (principal); J96.21 Acute and chronic respiratory failure with hypoxia; I50.33 Acute on chronic diastolic (congestive) heart failure; E87.2 Acidosis; E44.0 Moderate protein-calorie malnutrition; E87.1 Hypo-osmolality and hyponatremia; I13.0 Hypertensive heart and chronic kidney disease with heart failure and stage 1 through stage 4 chronic kidney disease, or unspecified chronic kidney disease; N39.0 Urinary tract infection, site not specified; D61.818 Other pancytopenia; Z68.43 Body mass index [BMI] 50.0-59.9, adult; E87.5 Hyperkalemia; D53.9 Nutritional anemia, unspecified; I25.10 Atherosclerotic heart disease of native coronary artery without angina pectoris; N18.9 Chronic kidney disease, unspecified; J44.9 Chronic obstructive pulmonary disease, unspecified; I87.2 Venous insufficiency (chronic) (peripheral); B96.1 Klebsiella pneumoniae [K. pneumoniae] as the cause of diseases classified elsewhere; E66.01 Morbid (severe) obesity due to excess calories; L40.9 Psoriasis, unspecified; D72.810 Lymphocytopenia; I48.0 Paroxysmal atrial fibrillation; R73.9 Hyperglycemia, unspecified; R80.0 Isolated proteinuria; R82.71 Bacteriuria; E55.9 Vitamin D deficiency, unspecified; Z87.891 Personal history of nicotine dependence; Z79.899 Other long term (current) drug therapy; Z83.3 Family history of diabetes mellitus; Z82.49 Family history of ischemic heart disease and other diseases of the circulatory system

== ENCOUNTER 2019-05-27 09:16 | Inpatient (IN) | payer OTHER ==
[2019-05-27] VITALS (42 sets, daily range): BP systolic 72–130; BP diastolic 0–82
[~2019-05-27] VITALS: Ht 160 cm; Wt 138.5 kg
[~2019-05-27 09:16] MED LIST changes: +BUMETANIDE2 MG PO; +METOPROLOL TART50 M1 PO; +POTASSIUM CHLO10 ME5 PO
[2019-05-27 10:20] LABS: BASO % 0.6 % (0.0-1.0); EOS # 0.2 10*3/uL (0.0-0.4); EOS % 3.4 % (1.0-4.0); HEMATOCRIT 21.8 % (42.0-52.0); LYMPH # 0.9 10*3/uL (1.3-4.4); LYMPH % 17.9 % (27.0-41.0); MEAN CELL VOLUME 99.1 fl (80.0-94.0); MEAN CORPUSCULAR HGB 31.8 pg (27.0-31.0); MEAN CORPUSCULAR HGB CONC 32.1 g/dl (33.0-37.0); MEAN PLATELET VOLUME 9.2 fl (9.6-12.3); MONO # 0.4 10*3/uL (0.1-1.0); NEUT # 3.7 10*3/uL (2.3-7.9); NEUT % 69.7 % (47.0-73.0); PLATELET COUNT AUTOMATED 65 10*3/uL (130-400); RED CELL DISTRI WIDTH 15.1 % (0-14.5); WHITE BLOOD COUNT 5.3 10*3/uL (4.8-10.8)
[2019-05-27 10:31] LABS: ACT PARTIAL THROMBO TIME 37.2 SECONDS (20.0-32.1); INTERNATIONAL NORM RATIO 1.3 (2.0-3.5)
[2019-05-27 10:38] LABS: ALBUMIN 2.8 gm/dl (3.1-4.5); CREATININE 5.07 mg/dL (0.70-1.30); POTASSIUM 5.3 mmol/L (3.5-5.1); TOTAL PROTEIN 7.8 gm/dL (6.4-8.2)
[2019-05-27 10:55] LABS: TROPONIN I 0.04 ng/ml (<0.045)
[2019-05-27 11:07] LABS: FERRITIN 241.9 ng/mL (22.0-322.0)
--- NOTE | 2019-05-27 13:20 | NUR ---
A 53yr old male, admitted to [facility], under the services of TRIP Ferrell DO with a diagnosis of GI bleed, acute renal failure. Chief complaint is came from Dr's office where he was told he had a "low blood count" and he has been passing blood rectally for one week. Patient arrived via stretcher from ER. Blood pressure 72 systolic on arrival. Monitor applied. Initial assessment completed. Vital signs taken and recorded. See assessment for past medical history, medications and allergies. Patient and/or family oriented to unit. [facility] visitation policy reviewed. Clothing/patient valuable form completed. JOAQUIM AMBROCIO L
[2019-05-27] MEDS ORDERED: HYDROXYZINE HCL25 MG PO (13:29)
--- NOTE | 2019-05-27 13:31 | NUR ---
MEDICATIONS VERIFIED WITH TATA AT [facility].
--- NOTE | 2019-05-27 15:00 | NUR ---
both caterina garvey/samara have been notified of consults by er
[2019-05-27 15:31] LABS: BILIRUBIN 1+ (NEGATIVE); BLOOD TRACE-INTACT (NEGATIVE); CLARITY CLOUDY (CLEAR); COLOR YELLOW (YELLOW); GLUCOSE NEGATIVE (NEGATIVE); KETONE TRACE (NEGATIVE); LEUKO ESTERASE TRACE (NEGATIVE); NITRITE NEGATIVE (NEGATIVE); PH 5.5 (5.0-9.0); SPECIFIC GRAVITY 1.025 (1.005-1.030)
[2019-05-27 15:41] LABS: BACTERIA 1+; MUCOUS 2+
--- NOTE | 2019-05-27 15:46 | NUR ---
RIJ HAS BEEN PLACED BY DR DACOSTA, FIRST UNIT OF BLOOD HAS INFUSED, BUMEX GIVEN, LEVAPHED UP AND CURRENTLY AT 8MCG, ALTAMIRANO HAS BEEN PLACED, UA/UC SENT, PT HAS BEEN KEPT NPO
--- NOTE | 2019-05-27 16:00 | NUR ---
DR SOLIS OK'ED NO BLLOD BEING DRAWN BETWEEN 1 AND 2ND UNITS BUMEX HAS BEEN GIVEN REPEAT LABS AFTER 2ND UNIT
--- NOTE | 2019-05-27 16:04 | NUR ---
CALLED DR MAKI FOR CLARIFICATION OF ORDERS, HE WILL CALL BACK
--- NOTE | 2019-05-27 17:33 | NUR ---
CT CHEST COMPLETED
--- NOTE | 2019-05-27 17:59 | NUR ---
COLO PREP ORDERS PER DR NOLASCO WHO SPOKE WITH DR MAKI, ATTEMPTED TO CALL GLYNN AGAIN TO CLARIFY AND MESSAGE LEFT ON CELL
--- NOTE | 2019-05-27 18:00 | NUR ---
UP TO BSC FOR BRIGHT RED RECTAL BLEEDING
--- NOTE | 2019-05-27 18:37 | NUR ---
DR MAKI CALLED IN UPDATED ON BLOOD TRANSFUSED AND THAT PT HAS HAD BRIGHT RED RECTAL BLEEDING 150-200 CC, AND THAT DOCULAX HAS BEEN GIVEN, REST OF PREP ADJUSTED, AWAITING REPEAT LABS
[2019-05-27 19:34] LABS: BASO % 0.3 % (0.0-1.0); EOS # 0.2 10*3/uL (0.0-0.4); EOS % 3.1 % (1.0-4.0); HEMATOCRIT 25.7 % (42.0-52.0); HEMOGLOBIN 8.3 g/dl (14.0-18.0); LYMPH # 0.9 10*3/uL (1.3-4.4); LYMPH % 15.5 % (27.0-41.0); MEAN CORPUSCULAR HGB 31.3 pg (27.0-31.0); MEAN CORPUSCULAR HGB CONC 32.3 g/dl (33.0-37.0); MEAN PLATELET VOLUME 9.2 fl (9.6-12.3); MONO # 0.7 10*3/uL (0.1-1.0); MONO % 11.6 % (3.0-9.0); PLATELET COUNT AUTOMATED 68 10*3/uL (130-400); RED BLOOD COUNT 2.65 10*6/uL (4.50-5.90); RED CELL DISTRI WIDTH 15.8 % (0-14.5); WHITE BLOOD COUNT 5.9 10*3/uL (4.8-10.8)
[2019-05-27 19:49] LABS: ALBUMIN 2.7 gm/dl (3.1-4.5); CREATININE 4.62 mg/dL (0.70-1.30); POTASSIUM 5.1 mmol/L (3.5-5.1); TOTAL PROTEIN 7.8 gm/dL (6.4-8.2)
--- NOTE | 2019-05-27 20:23 | NUR ---
DR CASTELLON NOTIFIED OF LAB RESULTS.
--- NOTE | 2019-05-27 22:50 | NUR ---
MEDICATED WITH RESTORIL PER PRN ORDER FOR C/O INSOMNIA.
[2019-05-28] VITALS (89 sets, daily range): BP systolic 70–130; BP diastolic 21–96
[2019-05-28 06:40] LABS: BASO % 0.4 % (0.0-1.0); EOS # 0.2 10*3/uL (0.0-0.4); EOS % 3.6 % (1.0-4.0); HEMATOCRIT 23.5 % (42.0-52.0); HEMOGLOBIN 7.8 g/dl (14.0-18.0); LYMPH % 18.7 % (27.0-41.0); MEAN CELL VOLUME 95.1 fl (80.0-94.0); MEAN CORPUSCULAR HGB 31.6 pg (27.0-31.0); MEAN CORPUSCULAR HGB CONC 33.2 g/dl (33.0-37.0); MEAN PLATELET VOLUME 9.2 fl (9.6-12.3); MONO # 0.6 10*3/uL (0.1-1.0); MONO % 11.3 % (3.0-9.0); NEUT # 3.6 10*3/uL (2.3-7.9); NEUT % 65.6 % (47.0-73.0); PLATELET COUNT AUTOMATED 57 10*3/uL (130-400); RED BLOOD COUNT 2.47 10*6/uL (4.50-5.90); RED CELL DISTRI WIDTH 15.9 % (0-14.5); WHITE BLOOD COUNT 5.5 10*3/uL (4.8-10.8)
[2019-05-28 06:54] LABS: ACT PARTIAL THROMBO TIME 39.5 SECONDS (20.0-32.1); INTERNATIONAL NORM RATIO 1.4 (2.0-3.5)
[2019-05-28 07:00] LABS: ALBUMIN 2.6 gm/dl (3.1-4.5); CREATININE 3.82 mg/dL (0.70-1.30); PHOSPHOROUS 5.7 mg/dL (2.5-4.9); POTASSIUM 4.7 mmol/L (3.5-5.1); TOTAL PROTEIN 7.4 gm/dL (6.4-8.2)
[2019-05-28 07:05] LABS: THYROID STIM HORMONE (HS) 4.37 uIU/ml (0.358-4.75)
--- NOTE | 2019-05-28 07:37 | NUR ---
PHYSICAL THERAPY Nursing screen received and chart reviewed. Please refer PT evaluation if decline in functional mobility presents. Thank you. Ilene Barfield,PT,DPT.
--- NOTE | 2019-05-28 08:57 | NUR ---
UP TO RECLINER, REMAINS ON LEVAPHED WHICH IS NOW AT 12MCG AWAITING PLTS, DR MAKI HAS BEEN UPDATED ON AM LABS, WOUND CARE HAS BEEN IN RIJ PATENT AND EVELIA JULIEN PATENT
--- NOTE | 2019-05-28 09:08 | NUR ---
Nutritional Support Services Note: Pt was triggered for renal disease and for nutritional support regarding a wound. His current diet order is NPO. No nutrition intervention needed until diet advances.
--- NOTE | 2019-05-28 09:22 | NUR ---
MICHEAL GARNETT [id number] Please refer to the physician's history and physical for past medical history, comorbid conditions, and allergies. Diagnosis: GI BLEED ARF ACUTE BLOOD LOSS ANEMIA Sachin Score: 13,MODERATE RISK WOUND DESCRIPTIONS: Wound Number: 1 Location of the wound: right upper thigh Thickness: Full Size: 2.5cm X 3.0cm X 0.1cm Tunneling: none Undermining: none Sinus Tract: none Presence of Exudate: none Amount: none Color: Brown, red, yellow Odor: None Periwound Skin Appearance: dry Wound edges: approximated Pain (associated with wound): denied at time of assessment How does patient state this happened? patient states this has been ongoing and he has followed in the wound care center previously. Wound Number: 2 Location of the wound: right anterior lower extremity Thickness: Full Size: 7.0cm X 7.0cm X 0.1cm Tunneling: none Undermining: none Sinus Tract: none Presence of Exudate: none Amount: none Color: red, yellow Odor: None Periwound Skin Appearance: dry Wound edges: approximated Pain (associated with wound): denied at time of assessment How does patient state this happened? patient states this has been ongoing and he has followed in the wound care center previously. Wound Number: 3 Location of the wound: left calf Thickness: Full Size: 1.5cm X 1.5cm X 0.1cm Tunneling: none Undermining: none Sinus Tract: none Presence of Exudate: none Amount: none Color: brown Odor: None Periwound Skin Appearance: dry Wound edges: approximated Pain (associated with wound): denied at time of assessment How does patient state this happened? patient states this has been ongoing and he has followed in the wound care center previously. Wound Number: 4 Location of the wound: right calf Thickness: Full Size: 2.5cm X 2.0cm X 0.1cm Tunneling: none Undermining: none Sinus Tract: none Presence of Exudate: none Amount: none Color: brown Odor: None Periwound Skin Appearance: dry Wound edges: approximated Pain (associated with wound): denied at time of assessment How does patient state this happened? patient states this has been ongoing and he has followed in the wound care center previously. Surface the patient is resting on: Isoflex SKIN PREVENTION RECOMMENDATION: 1. Pressure redistribution support surface as appropriate 2. Elevate heels 3. Remove boots/TEDS every shift and reapply 4. Head of bed 30 degrees as tolerated 5. Assess nutrition and hydration 6. Manage moisture 7. Avoid the use of containment devices while in bed 8. Use absorptive products on surfaces limit layers of linens on bed 9. Turn and reposition every 1-2 hours in bed and every 1 hour in chair as tolerated 10. Weight shifts every 15 minutes while up in chair 11. Offloading with pillows or device to keep heels elevated off bed 12. Monitor skin at least every shift 13. Inspect under medical devices twice a day WOUND TREATMENT RECOMMENDATIONS: Cleanse BLE's with soap and water and apply Lac Hydrin order to dry areas to BLE. Full thickness guidelines: Cleanse right upper thigh with nss and apply sureprep around the wound therahoney to wound bed and cover with optifoam gentle. Heel raiser pro boots to bilateral feet while in bed Venous and arterial studies to BLE's due to non-healing wounds. Consult podiatry for BLE's non-healing wounds.
--- NOTE | 2019-05-28 10:50 | NUR ---
Dr. Freed notified of wound care recommendations.
--- NOTE | 2019-05-28 11:45 | NUR ---
BACK TO BED, AFTER + MODERATE FORMED BM FROM FLEETS TAP WATER GIVEN AND TOLERATED FAIRLY WELL
--- NOTE | 2019-05-28 11:50 | NUR ---
RENAL IN TO SEE PT PODIATRY HAS ALREADY BEEN HERE TO SEE PT
--- NOTE | 2019-05-28 12:40 | NUR ---
TO OR VIA BED WITH LEVAPHED AT 12
--- NOTE | 2019-05-28 12:52 | NUR ---
Nursing screen and chart reviewed. If patient should have a decline in ADLs or functional mobility/safety then refer to OT. Thank you. Prachi Saravia OTR/L
--- NOTE | 2019-05-28 15:04 | NUR ---
RETURNED FROM OR, AAOX3, LEVAPHED AT 12 PT EATING SOME ICE
--- NOTE | 2019-05-28 17:00 | NUR ---
HR 120-130'S, AF, DR SOLIS UPDATED IV LOPRESSOR ORDERED, LEVAPHED INCREASED BACK TO 12
--- NOTE | 2019-05-28 18:49 | NUR ---
UP TO [facility] FOR VERY LARGE GELANTIOUS BLOOD, DR SOLIS NOTIFIED, LABS ORDERED
--- NOTE | 2019-05-28 18:57 | NUR ---
PT DOES NOT WANT THE SCDS ON RIGHT NOW
[2019-05-28 19:07] LABS: BASO % 0.4 % (0.0-1.0); EOS # 0.2 10*3/uL (0.0-0.4); EOS % 4.2 % (1.0-4.0); HEMATOCRIT 21.8 % (42.0-52.0); HEMOGLOBIN 7.1 g/dl (14.0-18.0); LYMPH # 0.9 10*3/uL (1.3-4.4); LYMPH % 17.6 % (27.0-41.0); MEAN CELL VOLUME 96.5 fl (80.0-94.0); MEAN CORPUSCULAR HGB 31.4 pg (27.0-31.0); MEAN CORPUSCULAR HGB CONC 32.6 g/dl (33.0-37.0); MEAN PLATELET VOLUME 8.8 fl (9.6-12.3); MONO # 0.6 10*3/uL (0.1-1.0); MONO % 11.9 % (3.0-9.0); NEUT # 3.3 10*3/uL (2.3-7.9); NEUT % 65.5 % (47.0-73.0); PLATELET COUNT AUTOMATED 58 10*3/uL (130-400); RED BLOOD COUNT 2.26 10*6/uL (4.50-5.90); WHITE BLOOD COUNT 5.1 10*3/uL (4.8-10.8)
[2019-05-28 19:17] LABS: CREATININE 3.03 mg/dL (0.70-1.30)
[2019-05-28 19:19] LABS: ACT PARTIAL THROMBO TIME 39.4 SECONDS (20.0-32.1); INTERNATIONAL NORM RATIO 1.5 (2.0-3.5)
[2019-05-29] VITALS (89 sets, daily range): BP systolic 74–132; BP diastolic 27–95
--- NOTE | 2019-05-29 00:03 | NUR ---
PRBC STARTED AT 2345. TOLERATING AT THIS TIME.
--- NOTE | 2019-05-29 01:57 | NUR ---
1 UNIT OF PRBC INFUSED WITH NO COMPLICATIONS.
[2019-05-29 04:11] LABS: BASO % 0.5 % (0.0-1.0); EOS # 0.2 10*3/uL (0.0-0.4); EOS % 3.7 % (1.0-4.0); HEMATOCRIT 23.4 % (42.0-52.0); HEMOGLOBIN 7.7 g/dl (14.0-18.0); LYMPH # 1.1 10*3/uL (1.3-4.4); MEAN CELL VOLUME 95.1 fl (80.0-94.0); MEAN CORPUSCULAR HGB 31.3 pg (27.0-31.0); MEAN CORPUSCULAR HGB CONC 32.9 g/dl (33.0-37.0); MEAN PLATELET VOLUME 8.5 fl (9.6-12.3); MONO # 0.7 10*3/uL (0.1-1.0); MONO % 11.3 % (3.0-9.0); NEUT # 3.9 10*3/uL (2.3-7.9); PLATELET COUNT AUTOMATED 53 10*3/uL (130-400); RED BLOOD COUNT 2.46 10*6/uL (4.50-5.90); RED CELL DISTRI WIDTH 16.1 % (0-14.5); WHITE BLOOD COUNT 5.9 10*3/uL (4.8-10.8)
[2019-05-29 04:21] LABS: ACT PARTIAL THROMBO TIME 39.8 SECONDS (20.0-32.1); INTERNATIONAL NORM RATIO 1.4 (2.0-3.5)
[2019-05-29 04:22] LABS: CREATININE 2.55 mg/dL (0.70-1.30); POTASSIUM 4.4 mmol/L (3.5-5.1)
[2019-05-29 11:52] LABS: BASO % 0.5 % (0.0-1.0); EOS # 0.2 10*3/uL (0.0-0.4); EOS % 3.4 % (1.0-4.0); HEMATOCRIT 23.4 % (42.0-52.0); HEMOGLOBIN 7.7 g/dl (14.0-18.0); LYMPH # 1.1 10*3/uL (1.3-4.4); LYMPH % 18.7 % (27.0-41.0); MEAN CELL VOLUME 95.9 fl (80.0-94.0); MEAN CORPUSCULAR HGB 31.6 pg (27.0-31.0); MEAN CORPUSCULAR HGB CONC 32.9 g/dl (33.0-37.0); MEAN PLATELET VOLUME 8.6 fl (9.6-12.3); MONO # 0.7 10*3/uL (0.1-1.0); MONO % 11.5 % (3.0-9.0); NEUT # 3.8 10*3/uL (2.3-7.9); NEUT % 65.6 % (47.0-73.0); PLATELET COUNT AUTOMATED 52 10*3/uL (130-400); RED BLOOD COUNT 2.44 10*6/uL (4.50-5.90); RED CELL DISTRI WIDTH 16.6 % (0-14.5); WHITE BLOOD COUNT 5.8 10*3/uL (4.8-10.8)
--- NOTE | 2019-05-29 19:39 | NUR ---
PATIENT ASSISTED OFF THE BEDSIDE COMMODE BACK TO CHAIR. PATIENT HAD MEDIUM BLOOD STREAKED BROWN THICK LIQUID BOWEL MOVEMENT.
--- NOTE | 2019-05-29 20:03 | NUR ---
PATIENT MEDICATED WITH NORCO PER DRS ORDERS FOR COMPLAINTS OF MUSCLE CRAMP AND PAIN TO BILATERAL HANDS. RN WILL CONTINUE TO MONITOR
[2019-05-30] VITALS (87 sets, daily range): BP systolic 71–133; BP diastolic 36–83
[2019-05-30 06:17] LABS: ALBUMIN 2.5 gm/dl (3.1-4.5); CREATININE 1.63 mg/dL (0.70-1.30); POTASSIUM 4.8 mmol/L (3.5-5.1); TOTAL PROTEIN 7.2 gm/dL (6.4-8.2)
[2019-05-30 07:08] LABS: BASO % 0.5 % (0.0-1.0); EOS # 0.3 10*3/uL (0.0-0.4); EOS % 4.8 % (1.0-4.0); HEMATOCRIT 25.8 % (42.0-52.0); HEMOGLOBIN 8.4 g/dl (14.0-18.0); LYMPH # 1.2 10*3/uL (1.3-4.4); LYMPH % 21.7 % (27.0-41.0); MEAN CELL VOLUME 96.6 fl (80.0-94.0); MEAN CORPUSCULAR HGB 31.5 pg (27.0-31.0); MEAN CORPUSCULAR HGB CONC 32.6 g/dl (33.0-37.0); MEAN PLATELET VOLUME 9.7 fl (9.6-12.3); MONO # 0.7 10*3/uL (0.1-1.0); MONO % 13.1 % (3.0-9.0); NEUT # 3.3 10*3/uL (2.3-7.9); NEUT % 59.4 % (47.0-73.0); PLATELET COUNT AUTOMATED 53 10*3/uL (130-400); RED BLOOD COUNT 2.67 10*6/uL (4.50-5.90); RED CELL DISTRI WIDTH 16.7 % (0-14.5); WHITE BLOOD COUNT 5.6 10*3/uL (4.8-10.8)
--- NOTE | 2019-05-30 07:45 | NUR ---
COMPLAINS OF ABDOMINAL PAIN. RATES PAIN A 5 ON A PAIN SCALE OF 1-10. MEDICATED WITH NORCO ORDERED FOR PAIN.
--- NOTE | 2019-05-30 08:30 | NUR ---
VOICES THAT PAIN MED WAS EFFECTIVE
--- NOTE | 2019-05-30 09:53 | NUR ---
ATE ALL OF BREAKFAST. VOICES THAT HE IS NAUSEOUS AND MAY VOMIT. MEDICATED WITH ZOFRAN ORDERED
--- NOTE | 2019-05-30 10:30 | NUR ---
DR. KAY HERE TO SEE PATIENT. DISCUSSED WITH PATIENT TRANSFERRRING TO ANOTHER FACILITY, HE REFUSES AT THIS TIME.
--- NOTE | 2019-05-30 11:30 | NUR ---
DR. KILGORE HERE TO SEE PATIENT ON CONSULT
--- NOTE | 2019-05-30 13:49 | NUR ---
DR. MUNOZ HERE TO SEE PATIENT ON CONSULT.
--- NOTE | 2019-05-30 19:57 | NUR ---
Patient dry heaving, stated he felt nauseated. zofran given. will monitor and reassess.
--- NOTE | 2019-05-30 20:19 | NUR ---
PATIENT STATED THE ZOFRAN WAS EFFECTIVE FOR NAUSEA.
--- NOTE | 2019-05-30 22:01 | NUR ---
PATIENT LEFT FLOOR VIA ASI FOR TRANSFER TO [facility], ACCEPTING DR. SOLORIO.
== END 2019-05-30 22:01 | disposition short-term general hospital (02) | DRG 871 ==
LOC: ED 09:16 → EDHOLD 11:33 → ICCU 11:33
PROVIDERS: Emergency Medicine; Hospitalist; Internal Medicine; Student in an Organized Health Care Education/Training Program; ADMIT Internal Medicine
PROC: 30233N1 Transfusion of Nonautologous Red Blood Cells into Peripheral Vein, Percutaneous Approach (ICD-10-PCS; principal; 2019-05-27)
PROC: 02HV33Z Insertion of Infusion Device into Superior Vena Cava, Percutaneous Approach (ICD-10-PCS; 2019-05-27)
PROC: B548ZZA Ultrasonography of Superior Vena Cava, Guidance (ICD-10-PCS; 2019-05-27)
PROC: 0DJD8ZZ Inspection of Lower Intestinal Tract, Via Natural or Artificial Opening Endoscopic (ICD-10-PCS; 2019-05-28)
PROC: 0DB98ZX Excision of Duodenum, Via Natural or Artificial Opening Endoscopic, Diagnostic (ICD-10-PCS; 2019-05-28)
PROC: 30233R1 Transfusion of Nonautologous Platelets into Peripheral Vein, Percutaneous Approach (ICD-10-PCS; 2019-05-28)
PROC: 03HY32Z Insertion of Monitoring Device into Upper Artery, Percutaneous Approach (ICD-10-PCS; 2019-05-29)
PROC: B54NZZA Ultrasonography of Left Upper Extremity Veins, Guidance (ICD-10-PCS; 2019-05-29)
DX: A41.9 Sepsis, unspecified organism (principal); E43 Unspecified severe protein-calorie malnutrition; J18.9 Pneumonia, unspecified organism; R65.21 Severe sepsis with septic shock; K29.71 Gastritis, unspecified, with bleeding; I50.33 Acute on chronic diastolic (congestive) heart failure; D62 Acute posthemorrhagic anemia; N17.9 Acute kidney failure, unspecified; E87.1 Hypo-osmolality and hyponatremia; J90 Pleural effusion, not elsewhere classified; I13.0 Hypertensive heart and chronic kidney disease with heart failure and stage 1 through stage 4 chronic kidney disease, or unspecified chronic kidney disease; K86.0 Alcohol-induced chronic pancreatitis; Z68.43 Body mass index [BMI] 50.0-59.9, adult; J44.9 Chronic obstructive pulmonary disease, unspecified; N18.9 Chronic kidney disease, unspecified; I25.10 Atherosclerotic heart disease of native coronary artery without angina pectoris; L40.9 Psoriasis, unspecified; I87.2 Venous insufficiency (chronic) (peripheral); E66.01 Morbid (severe) obesity due to excess calories; D53.9 Nutritional anemia, unspecified; D69.6 Thrombocytopenia, unspecified; E87.5 Hyperkalemia; R73.9 Hyperglycemia, unspecified; R31.9 Hematuria, unspecified; I48.2 Chronic atrial fibrillation; K29.70 Gastritis, unspecified, without bleeding; I95.9 Hypotension, unspecified; K29.80 Duodenitis without bleeding; K44.9 Diaphragmatic hernia without obstruction or gangrene; Z87.891 Personal history of nicotine dependence; Z82.49 Family history of ischemic heart disease and other diseases of the circulatory system; Z83.3 Family history of diabetes mellitus; Z79.899 Other long term (current) drug therapy

== ENCOUNTER → 2019-06-15 | Outpatient (CLI) | payer OTHER ==
[~2019-06-15] MED LIST changes: -BUMETANIDE2 MG PO; +CONSTULOSE10 GM/151 PO; +DIGOXIN125 MCG PO; +DOXYCYCLINE100 M3 PO; +HYDROCORTISONE10 MG PO; +HYDROXYZINE HCL25 MG PO; +Lopressor25 MG PO; +NATURE'S BLEND100 M2 PO; +PANTOPRAZOLE SO40 MG PO; +XIFAXAN550 MG PO
[2019-06-15 12:40] LABS: BASO % 0.6 % (0.0-1.0); EOS # 0.1 10*3/uL (0.0-0.4); EOS % 2.3 % (1.0-4.0); HEMATOCRIT 25.9 % (42.0-52.0); HEMOGLOBIN 8.1 g/dl (14.0-18.0); LYMPH # 0.5 10*3/uL (1.3-4.4); LYMPH % 14.8 % (27.0-41.0); MEAN CELL VOLUME 98.9 fl (80.0-94.0); MEAN CORPUSCULAR HGB 30.9 pg (27.0-31.0); MEAN CORPUSCULAR HGB CONC 31.3 g/dl (33.0-37.0); MEAN PLATELET VOLUME 10.2 fl (9.6-12.3); MONO # 0.3 10*3/uL (0.1-1.0); NEUT # 2.3 10*3/uL (2.3-7.9); NEUT % 73.7 % (47.0-73.0); PLATELET COUNT AUTOMATED 69 10*3/uL (130-400); RED BLOOD COUNT 2.62 10*6/uL (4.50-5.90); RED CELL DISTRI WIDTH 16.5 % (0-14.5); WHITE BLOOD COUNT 3.1 10*3/uL (4.8-10.8)
[2019-06-15 12:56] LABS: ALBUMIN 2.8 gm/dl (3.1-4.5); ALKALINE PHOSPHATASE 173 U/L (45-117); BUN 17 mg/dl (7-24); CHLORIDE 101 mmol/L (98-107); CREATININE 1.05 mg/dL (0.70-1.30); POTASSIUM 3.1 mmol/L (3.5-5.1); SGOT/AST 27 IU/L (3-35); SGPT/ALT 26 U/L (12-78); SODIUM 138 mmol/L (136-145); TOTAL PROTEIN 7.6 gm/dL (6.4-8.2)
== END | disposition home or self-care (01) ==
LOC: LAB 12:15
PROVIDERS: Nurse Practitioner Family
DX: D72.819 Decreased white blood cell count, unspecified (principal); D64.9 Anemia, unspecified; D69.6 Thrombocytopenia, unspecified; R94.4 Abnormal results of kidney function studies; E72.00 Disorders of amino-acid transport, unspecified; E87.6 Hypokalemia; K26.4 Chronic or unspecified duodenal ulcer with hemorrhage; R06.02 Shortness of breath; J44.9 Chronic obstructive pulmonary disease, unspecified; I50.32 Chronic diastolic (congestive) heart failure

== ENCOUNTER → 2019-06-24 | Outpatient (CLI) | payer OTHER ==
[~2019-06-24] MED LIST changes: +BUMETANIDE2 MG PO; +K-TAB20 MEQ PO
[2019-06-24 12:08] LABS: BASO % 0.8 % (0.0-1.0); EOS # 0.1 10*3/uL (0.0-0.4); EOS % 2.9 % (1.0-4.0); HEMATOCRIT 28.4 % (42.0-52.0); HEMOGLOBIN 8.6 g/dl (14.0-18.0); LYMPH # 0.5 10*3/uL (1.3-4.4); LYMPH % 13.1 % (27.0-41.0); MEAN CORPUSCULAR HGB 30.3 pg (27.0-31.0); MEAN CORPUSCULAR HGB CONC 30.3 g/dl (33.0-37.0); MEAN PLATELET VOLUME 9.9 fl (9.6-12.3); MONO # 0.3 10*3/uL (0.1-1.0); MONO % 8.9 % (3.0-9.0); NEUT # 2.8 10*3/uL (2.3-7.9); NEUT % 73.8 % (47.0-73.0); PLATELET COUNT AUTOMATED 52 10*3/uL (130-400); RED BLOOD COUNT 2.84 10*6/uL (4.50-5.90); RED CELL DISTRI WIDTH 16.6 % (0-14.5); WHITE BLOOD COUNT 3.8 10*3/uL (4.8-10.8)
[2019-06-24 12:46] LABS: BUN 21 mg/dl (7-24); CHLORIDE 99 mmol/L (98-107); CREATININE 1.16 mg/dL (0.70-1.30); POTASSIUM 4.2 mmol/L (3.5-5.1); SGOT/AST 32 IU/L (3-35); SGPT/ALT 21 U/L (12-78); SODIUM 135 mmol/L (136-145)
[2019-06-24 12:48] LABS: ALKALINE PHOSPHATASE 139 U/L (45-117); TOTAL PROTEIN 8.3 gm/dL (6.4-8.2)
== END | disposition home or self-care (01) ==
LOC: LAB 11:13
PROVIDERS: Nurse Practitioner Family
DX: D64.9 Anemia, unspecified (principal); K26.4 Chronic or unspecified duodenal ulcer with hemorrhage; D72.819 Decreased white blood cell count, unspecified; E87.6 Hypokalemia; R94.4 Abnormal results of kidney function studies; E27.40 Unspecified adrenocortical insufficiency

== ENCOUNTER 2019-07-15 15:17 | Inpatient (IN) | payer OTHER ==
[~2019-07-15] VITALS: Ht 172.7 cm; Wt 125.7 kg
[2019-07-15] VITALS (19 sets, daily range): BP systolic 87–148; BP diastolic 27–89
[~2019-07-15 15:17] MED LIST changes: -CONSTULOSE10 GM/151 PO; -DIGOXIN125 MCG PO; -DOXYCYCLINE100 M3 PO; -HYDROCORTISONE10 MG PO; -K-TAB20 MEQ PO; -Lopressor25 MG PO; -NATURE'S BLEND100 M2 PO; -PANTOPRAZOLE SO40 MG PO; -XIFAXAN550 MG PO
--- NOTE | 2019-07-15 15:46 | NUR ---
RESIDENCE IN WITH PATIENTS
--- NOTE | 2019-07-15 16:19 | NUR ---
UNABLE TO ESTABLISH IV ACCESS
--- NOTE | 2019-07-15 16:41 | NUR ---
PT REMAINS WITHOUT IV ACCESS RESP WITH PATIENT PT ON BIPAP DR KIRK WITH PATIENT
[2019-07-15 16:45] LABS: BASO % 0.2 % (0.0-1.0); EOS % 0.4 % (1.0-4.0); HEMATOCRIT 30.7 % (42.0-52.0); HEMOGLOBIN 9.5 g/dl (14.0-18.0); LYMPH # 0.7 10*3/uL (1.3-4.4); LYMPH % 6.5 % (27.0-41.0); MEAN CELL VOLUME 97.2 fl (80.0-94.0); MEAN CORPUSCULAR HGB 30.1 pg (27.0-31.0); MEAN CORPUSCULAR HGB CONC 30.9 g/dl (33.0-37.0); MEAN PLATELET VOLUME 10.1 fl (9.6-12.3); MONO # 0.4 10*3/uL (0.1-1.0); MONO % 3.8 % (3.0-9.0); NEUT # 9.2 10*3/uL (2.3-7.9); NEUT % 88.4 % (47.0-73.0); PLATELET COUNT AUTOMATED 69 10*3/uL (130-400); RED BLOOD COUNT 3.16 10*6/uL (4.50-5.90); RED CELL DISTRI WIDTH 15.7 % (0-14.5); WHITE BLOOD COUNT 10.4 10*3/uL (4.8-10.8)
[2019-07-15 16:49] LABS: ABG HCO3 25.1 mmol/l (22-26); ABG O2 SATURATION 99.8 % (95-97); ARTERIAL BLOOD GAS PCO2 54.2 mmHg (35-45); ARTERIAL BLOOD GAS PH 7.287 (7.35-7.45)
[2019-07-15 16:59] LABS: ACT PARTIAL THROMBO TIME 27.2 SECONDS (20.0-32.1); INTERNATIONAL NORM RATIO 1.3 (2.0-3.5)
[2019-07-15 17:19] LABS: ALKALINE PHOSPHATASE 184 U/L (45-117); BUN 24 mg/dl (7-24); CHLORIDE 96 mmol/L (98-107); CREATININE 1.38 mg/dL (0.70-1.30); POTASSIUM 3.9 mmol/L (3.5-5.1); SGOT/AST 38 IU/L (3-35); SGPT/ALT 22 U/L (12-78); SODIUM 131 mmol/L (136-145)
[2019-07-15 17:23] LABS: TROPONIN I 0.084 ng/ml (<0.045)
--- NOTE | 2019-07-15 17:31 | NUR ---
PATIENTS LACTIC ACID IS 3.5 AND TROPONIN IS 0.084 DR KIRK NOTIFIED.
--- NOTE | 2019-07-15 18:49 | NUR ---
PT GIVEN 80 LASIX PT ON BIPAP PT STATES BREATHING MUCH IMPROVED AND PT FEELS BETTER
--- NOTE | 2019-07-15 19:15 | NUR ---
A 53, admitted to ICCU, under the services of JESUS Archer DO with a diagnosis of COPD EXACERBATION,CHF.. Chief complaint is SHORTNESS OF BREATH. Patient arrived via stretcher from ER. Monitor applied. Initial assessment completed. Vital signs taken and recorded. JESUS ARCHER DO notified of admission to the unit. Orders received. See assessment for past medical history, medications and allergies. Patient and/or family oriented to unit. [facility] visitation policy reviewed. Clothing/patient valuable form completed. KEAGAN VIVAR
[2019-07-15 19:18] LABS: ABG BASE EXCESS 0.2 mmol/L (-2.0-2.0); ABG HCO3 25.8 mmol/l (22-26); ABG O2 SATURATION 98.9 % (95-97); ARTERIAL BLOOD GAS PCO2 49.9 mmHg (35-45); ARTERIAL BLOOD GAS PH 7.332 (7.35-7.45)
--- NOTE | 2019-07-15 19:30 | NUR ---
CONTACTED DR. CORONEL OFFICE FOR CONSULT.
--- NOTE | 2019-07-15 19:33 | NUR ---
#16 ALTAMIRANO PLACED WITHOUT DIFFICULTY FOR 200cC STRAW URINE. SPECIMENS OBTAINED. MRSA & FLU SWABS OBTAINED. DR GREENE AT BEDSIDE & PATIENT GAVE VERBAL CONSENT FOR LINE PLACEMENT AFTER EXPLAINED BY DR GREENE.
--- NOTE | 2019-07-15 20:00 | NUR ---
CONTACTED DR. KILGORE FOR NEW CONSULT, NEW ORDERS RECEIVED.
[2019-07-15 20:35] LABS: BILIRUBIN NEGATIVE (NEGATIVE); BLOOD TRACE-INTACT (NEGATIVE); CLARITY SL CLOUDY (CLEAR); COLOR YELLOW (YELLOW); GLUCOSE NEGATIVE (NEGATIVE); KETONE NEGATIVE (NEGATIVE); LEUKO ESTERASE NEGATIVE (NEGATIVE); NITRITE NEGATIVE (NEGATIVE); PH 5.5 (5.0-9.0); SPECIFIC GRAVITY 1.015 (1.005-1.030); UROBILINOGEN 0.2 E.U./dl (0.2-1.0)
[2019-07-16] VITALS (96 sets, daily range): BP systolic 92–136; BP diastolic 28–81
--- NOTE | 2019-07-16 03:30 | NUR ---
TYLENOL GIVEN FOR A TEMP OF 101. WILL MONITOR AND REASSESS.
[2019-07-16 05:06] LABS: ALBUMIN 2.5 gm/dl (3.1-4.5); CREATININE 1.74 mg/dL (0.70-1.30); PHOSPHOROUS 2.8 mg/dL (2.5-4.9); POTASSIUM 4.3 mmol/L (3.5-5.1); TOTAL PROTEIN 7.6 gm/dL (6.4-8.2)
--- NOTE | 2019-07-16 05:33 | NUR ---
VERBAL CONSENT GIVEN FOR PLACEMENT OF PICC LINE BY DR. GREENE.
[2019-07-16 05:56] LABS: BASO % 0.3 % (0.0-1.0); EOS # 0.1 10*3/uL (0.0-0.4); EOS % 1.1 % (1.0-4.0); HEMATOCRIT 27.5 % (42.0-52.0); HEMOGLOBIN 8.5 g/dl (14.0-18.0); LYMPH # 0.7 10*3/uL (1.3-4.4); LYMPH % 6.2 % (27.0-41.0); MEAN CELL VOLUME 96.2 fl (80.0-94.0); MEAN CORPUSCULAR HGB 29.7 pg (27.0-31.0); MEAN CORPUSCULAR HGB CONC 30.9 g/dl (33.0-37.0); MEAN PLATELET VOLUME 10.3 fl (9.6-12.3); MONO # 0.6 10*3/uL (0.1-1.0); MONO % 5.5 % (3.0-9.0); NEUT # 9.7 10*3/uL (2.3-7.9); NEUT % 86.4 % (47.0-73.0); NUCLEATED RED BLOOD CELL 0.2 % (0.0-0.0); PLATELET COUNT AUTOMATED 56 10*3/uL (130-400); RED BLOOD COUNT 2.86 10*6/uL (4.50-5.90); RED CELL DISTRI WIDTH 15.9 % (0-14.5); WHITE BLOOD COUNT 11.2 10*3/uL (4.8-10.8)
--- NOTE | 2019-07-16 06:09 | NUR ---
NEW CONSULT CALLED TO DR. KRISHNAN'S OFFICE.
[2019-07-16] MEDS ORDERED: PANTOPRAZOLE SO40 MG PO (06:23)
[2019-07-16] MEDS ORDERED: Lopressor25 MG PO (06:24)
[2019-07-16] MEDS ORDERED: DIGOXIN125 MCG PO (06:24)
--- NOTE | 2019-07-16 06:30 | NUR ---
ANTIBIOTICS JUST VERIFIED BY CARDINAL, UNABLE TO HANG AT THIS TIME, DUE TO NOT HAVING RESULT BACK FOR PICC LINE PLACEMENT.
[2019-07-16 07:42] LABS: ABG BASE EXCESS 2.3 mmol/L (-2.0-2.0); ABG HCO3 27.1 mmol/l (22-26); ABG O2 SATURATION 99.9 % (95-97); ARTERIAL BLOOD GAS PH 7.374 (7.35-7.45)
--- NOTE | 2019-07-16 08:00 | NUR ---
LEVOPHED GTT INCREASED TO 9 TRISTA'S FOR MAP 60
--- NOTE | 2019-07-16 09:19 | NUR ---
TAKEN OFF BI-PAP AND PLACED ON NASAL CANNULA 3L. PULSE OX 98%
[2019-07-16] MEDS ORDERED: NATURE'S BLEND100 M2 PO (09:44)
[2019-07-16] MEDS ORDERED: CONSTULOSE10 GM/151 PO (09:46)
[2019-07-16] MEDS ORDERED: XIFAXAN550 MG PO (09:47)
[2019-07-16] MEDS ORDERED: HYDROCORTISONE10 MG PO ×2 (09:49→09:50)
[2019-07-16 10:06] LABS: ABG BASE EXCESS 1.5 mmol/L (-2.0-2.0); ABG HCO3 26.6 mmol/l (22-26); ABG O2 SATURATION 99.6 % (95-97); ARTERIAL BLOOD GAS PCO2 49.8 mmHg (35-45); ARTERIAL BLOOD GAS PH 7.352 (7.35-7.45)
--- NOTE | 2019-07-16 20:00 | NUR ---
PATIENT SITTING UP IN CHAIR, STATED HE FEELS GREAT. PATIENT MORE ALERT, NOT DROWSY. PATIENT DENIES ANY SHORTNESS OF BREATH AT REST. HAS NO COMPLAINTS AT THIS TIME. PATIENT REQUESTED TO SLEEP IN THE CHAIR. CALL LIGHT IN REACH.
--- NOTE | 2019-07-16 22:00 | NUR ---
PATIENT DID NOT WANT TO GET UP OUT OF CHAIR FOR A BATH.
[2019-07-17] VITALS (46 sets, daily range): BP systolic 92–129; BP diastolic 33–61
--- NOTE | 2019-07-17 01:30 | NUR ---
PATIENT REQUESTED TYLENOL FOR A HEADACHE. WAS GIVEN. WILL MONITOR AND REASSESS.
--- NOTE | 2019-07-17 03:00 | NUR ---
TYLENOL EFFECTIVE FOR HEADACHE.
--- NOTE | 2019-07-17 03:12 | NUR ---
24 HR chart check completed.
--- NOTE | 2019-07-17 03:38 | NUR ---
07/17/19 00:05 PT DOES NOT WANT PLACED ON BIPAP. DENIES SOB. RN NOTIFIED.
--- NOTE | 2019-07-17 07:26 | NUR ---
Shift chart check completed.
[2019-07-17 09:07] LABS: HEMATOCRIT 25.9 % (42.0-52.0); HEMOGLOBIN 7.9 g/dl (14.0-18.0); MEAN CORPUSCULAR HGB 29.6 pg (27.0-31.0); MEAN CORPUSCULAR HGB CONC 30.5 g/dl (33.0-37.0); MEAN PLATELET VOLUME 10.3 fl (9.6-12.3); PLATELET COUNT AUTOMATED 44 10*3/uL (130-400); RED BLOOD COUNT 2.67 10*6/uL (4.50-5.90); RED CELL DISTRI WIDTH 15.9 % (0-14.5); WHITE BLOOD COUNT 4.7 10*3/uL (4.8-10.8)
[2019-07-17 09:15] LABS: BUN 27 mg/dl (7-24); CHLORIDE 100 mmol/L (98-107); CREATININE 1.25 mg/dL (0.70-1.30); POTASSIUM 3.7 mmol/L (3.5-5.1); SODIUM 135 mmol/L (136-145)
[2019-07-17 09:26] LABS: PLATELET SUFFICIENCY LOW (NORMAL); TOTAL CELLS COUNTED 100 #CELLS
--- NOTE | 2019-07-17 09:56 | NUR ---
DR BILLS HERE - NO FURTHER BLOOD THINNERS. HR STABLE WITH MEDS.
--- NOTE | 2019-07-17 10:00 | NUR ---
DR QUIÑONEZ CALLED WITH RECOMENDATIONS FROM DR BILLS
--- NOTE | 2019-07-17 11:12 | NUR ---
MESSAGE FOR DR MAKI ABOUT CONSULT. PT SITTING UP IN CHAIR
--- NOTE | 2019-07-17 11:45 | NUR ---
PATIENT UP TO BSC - BLOODY NOSE STARTED. PATIENT HOLDING PRESSURE & NURSE EXPLAINED LOW PLATELET COUNT. O2 HUMIDIFIED BUT WILL ATTEMPT ROOM AIR D/T 98% ON NC2L. WILL USE AEROSAL MASK HUMIDIFIED IF NEEDS O2 D/T NOSE BLEED
--- NOTE | 2019-07-17 13:16 | NUR ---
PRBC HUNG PER ORDERS. PATIENT DOZING IN RECLINER CHAIR ON ROOM AIR. DENIES ALL C/O AT PRESENT
--- NOTE | 2019-07-17 13:31 | NUR ---
BLOOD RATE INCREASED TO 100cc/hr. PATIENT DENIES ALL C/O
--- NOTE | 2019-07-17 14:12 | NUR ---
Shift chart check completed.24 HR chart check completed.
--- NOTE | 2019-07-17 15:41 | NUR ---
ON ASSESSMENT TRANSFUSION CONTINUES WITHOUT SIGNS OF REACTION. TYLENOL 650MG BY MOUTH FOR "HEADACHE". HE'S SITTING IN CARDIAC CHAIR. EDEMA FROM HIPS DOWN. PICC LINE INTACT LEFT ARM. MIDLINE RT UPPER ARM. MONITOR ATRIAL FIB VR 90-110. SEE ALL APPROPRIATE INTERVENTIONS.
--- NOTE | 2019-07-17 16:04 | NUR ---
BLOOD BAG INFUSED, SALINE INFUSING TO CLEAR TUBING. NO APPARENT REACTION.
--- NOTE | 2019-07-17 16:21 | NUR ---
TRANSFUSION COMPLETE AND DISCONNECTED.
--- NOTE | 2019-07-17 17:27 | NUR ---
UP TO BSC FOR MUSHY BM. SMALL AMOUNT BRIGHT RED BLOOD WHEN WIPING BUT IT CLEARED.
--- NOTE | 2019-07-17 19:01 | NUR ---
NO FURTHER C/O HEADACHE SINCE EARLIER TYLENOL.
--- NOTE | 2019-07-17 20:03 | NUR ---
PT OFFERED BATH BUT REFUSES STATING "I'LL GET ONE TOMORROW WHEN I GET IN MY OWN ROOM ON THE FLOOR." REMAINS SITTING IN CHAIR. NO C/O OR DISTRESS.
[2019-07-18] VITALS: BP 105/55
--- NOTE | 2019-07-18 02:00 | NUR ---
RESTORIL GIVEN AT 12AM WAS MILDLY EFFECTIVE. PT DOZING AT INTERVALS. PT DENIES PAIN OR DISTRESS. FREQUENT NONPRODUCTIVE COUGH CONTINUES.
--- NOTE | 2019-07-18 02:52 | NUR ---
UP AND DOWN TO BSC WITH ASSIST 3 TIMES SO FAR MY SHIFT. SMALL SOFT STOOL EACH TIME AND PASSING LG AMT OF FLATUS EACH TIME WELL.
[2019-07-18 04:00] VITALS: BP 103/55
[2019-07-18 04:33] LABS: HEMATOCRIT 27.1 % (42.0-52.0); HEMOGLOBIN 8.2 g/dl (14.0-18.0); MEAN CELL VOLUME 96.8 fl (80.0-94.0); MEAN CORPUSCULAR HGB 29.3 pg (27.0-31.0); MEAN CORPUSCULAR HGB CONC 30.3 g/dl (33.0-37.0); MEAN PLATELET VOLUME 10.2 fl (9.6-12.3); PLATELET COUNT AUTOMATED 44 10*3/uL (130-400); RED CELL DISTRI WIDTH 16.2 % (0-14.5); WHITE BLOOD COUNT 3.7 10*3/uL (4.8-10.8)
[2019-07-18 04:44] LABS: BUN 25 mg/dl (7-24); CHLORIDE 101 mmol/L (98-107); CREATININE 1.08 mg/dL (0.70-1.30); POTASSIUM 3.9 mmol/L (3.5-5.1); SODIUM 135 mmol/L (136-145)
[2019-07-18 04:58] LABS: BASOPHILS 1 % (0-1); TOTAL CELLS COUNTED 100 #CELLS
[2019-07-18 04:59] LABS: PLATELET SUFFICIENCY LOW (NORMAL)
[2019-07-18 05:02] LABS: OVALOCYTES FEW
--- NOTE | 2019-07-18 07:30 | NUR ---
TAKEN OFF FLOOR FOR CXR
[2019-07-18 08:00] VITALS: BP 120/64
--- NOTE | 2019-07-18 09:40 | NUR ---
DR. MAKI NOTIFIED OF HH RESULTS. EGD ORDERED FOR IN AM
[2019-07-18 12:00] VITALS: BP 117/60
--- NOTE | 2019-07-18 12:23 | NUR ---
REPORT GIVEN TO ANASTASIYA AMOS. PATIENT TO BE TRANSFERRED TO ROOM 528
--- NOTE | 2019-07-18 12:39 | NUR ---
PATIENT TRANSFERED FROM ICU. ALERT AND ORIENTED AT THIS TIME. RESPIRATIONS EASY. LUNGS DIMINISHED. NO COMPLAINTS VOICED AT THIS TIME.
[2019-07-18 16:00] VITALS: BP 110/56
[2019-07-18 20:00] VITALS: BP 127/60
--- NOTE | 2019-07-18 21:25 | NUR ---
PATIENT MEDICATED WITH PRN RESTORIL PER REQUEST FOR INSOMNIA. PATIENT LAYING IN RECLINING CHAIR. NO OTHER NEEDS AT THIS TIME. CALL LIGHT WITHIN REACH. WILL MONITOR FOR EFFECTIVENESS.
--- NOTE | 2019-07-18 22:00 | NUR ---
PRN RESTORIL EFFECTIVE.
[2019-07-19] VITALS: BP 127/59
--- NOTE | 2019-07-19 00:15 | NUR ---
PATIENT SLEEPING IN RECLINER CHAIR. ALTAMIRANO IN PLACE AND DRAINING LIGHT YELLOW URINE. RESPIRATIONS EVEN AND UNLABORED. NO DISTRESS NOTED. CALL LIGHT WITHIN REACH.
--- NOTE | 2019-07-19 01:44 | NUR ---
24 HR chart check completed.
[2019-07-19 06:34] LABS: BASO % 0.6 % (0.0-1.0); EOS # 0.1 10*3/uL (0.0-0.4); EOS % 3.1 % (1.0-4.0); HEMATOCRIT 28.3 % (42.0-52.0); HEMOGLOBIN 8.5 g/dl (14.0-18.0); LYMPH # 0.5 10*3/uL (1.3-4.4); LYMPH % 13.7 % (27.0-41.0); MEAN CELL VOLUME 97.6 fl (80.0-94.0); MEAN CORPUSCULAR HGB 29.3 pg (27.0-31.0); MEAN PLATELET VOLUME 10.3 fl (9.6-12.3); MONO # 0.3 10*3/uL (0.1-1.0); MONO % 8.3 % (3.0-9.0); NEUT # 2.6 10*3/uL (2.3-7.9); PLATELET COUNT AUTOMATED 48 10*3/uL (130-400); RED CELL DISTRI WIDTH 15.9 % (0-14.5); WHITE BLOOD COUNT 3.5 10*3/uL (4.8-10.8)
[2019-07-19 07:19] LABS: BUN 25 mg/dl (7-24); CHLORIDE 102 mmol/L (98-107); CREATININE 1.17 mg/dL (0.70-1.30); POTASSIUM 3.8 mmol/L (3.5-5.1); SODIUM 136 mmol/L (136-145)
[2019-07-19 08:22] LABS: ATYPICAL LYMPHS 1 % (0-0); BASOPHILS 2 % (0-1); TOTAL CELLS COUNTED 100 #CELLS
[2019-07-19 08:23] LABS: OVALOCYTES FEW; PLATELET SUFFICIENCY LOW (NORMAL)
--- NOTE | 2019-07-19 09:00 | NUR ---
Car Barn Laborer in to talk to patient. Patient states lives at home with son. There are few steps in the home. Physician: lee nelson Pharmacy: [facility] health services: none Patient's level of ADLs: INDEPENDENT Patient has working utilities: all working DME: walker, nebulizer Follow-up physician's appointment after d/c: will be made by hospitalist nurse director upon discharge Does patient want to access PORTAL?: no Discharge plan discussed with patient, he lives at home with son, states he is independent in adls and ambulation, drives, he has a walker but states he has never used it. he states he will be returning home when medically stable, discussed with him VNA and he declines any home services, case management will follow. LANNY TORRES
[2019-07-19] MEDS ORDERED: METOPROLOL TART50 M1 PO (10:19)
[2019-07-19] MEDS ORDERED: DOXYCYCLINE100 M3 PO (10:19)
[2019-07-19 10:33] VITALS: BP 125/72
--- NOTE | 2019-07-19 10:56 | NUR ---
NOTIFIED SURGERY PT REFUSING EGD.
--- NOTE | 2019-07-19 11:00 | NUR ---
TRIED TO CALL TO INFORM HIM PT REFUSING EGD. NO ANSWER. WILL TRY AGAIN.
--- NOTE | 2019-07-19 12:42 | NUR ---
Discharge instructions reviewed with patient/family. Patient receptive and verbalizes understanding. Follow-up care arranged. Written instructions given to patient/family. MIDLINE AND PICC LINE OUT AND MONITOR OFF AND ACCOUNTED FOR. STEPHANE BENITEZ
--- NOTE | 2019-07-19 12:44 | NUR ---
PER DR.TORMA ZHU TO TAKE OUT BOTH MID LINE AND PICC LINE.
== END 2019-07-19 12:42 | disposition home or self-care (01) | DRG 720 ==
LOC: ED 15:17 → EDHOLD 18:40 → ICCU 18:40 → 5E 18:40 → ICCU 19:00 → 5E 07-18 12:41
PROVIDERS: Emergency Medicine; Internal Medicine Critical Care Medicine; Student in an Organized Health Care Education/Training Program; ADMIT Family Medicine
PROC: 02HV33Z Insertion of Infusion Device into Superior Vena Cava, Percutaneous Approach (ICD-10-PCS; 2019-07-16)
PROC: 5A09357 Assistance with Respiratory Ventilation, Less than 24 Consecutive Hours, Continuous Positive Airway Pressure (ICD-10-PCS; 2019-07-16)
PROC: 30233N1 Transfusion of Nonautologous Red Blood Cells into Peripheral Vein, Percutaneous Approach (ICD-10-PCS; principal; 2019-07-17)
DX: A41.9 Sepsis, unspecified organism (principal); N17.0 Acute kidney failure with tubular necrosis; J18.9 Pneumonia, unspecified organism; I13.0 Hypertensive heart and chronic kidney disease with heart failure and stage 1 through stage 4 chronic kidney disease, or unspecified chronic kidney disease; J96.01 Acute respiratory failure with hypoxia; I50.33 Acute on chronic diastolic (congestive) heart failure; I48.91 Unspecified atrial fibrillation; I95.9 Hypotension, unspecified; E87.1 Hypo-osmolality and hyponatremia; N18.3 Chronic kidney disease, stage 3 (moderate); E44.0 Moderate protein-calorie malnutrition; R74.0 Nonspecific elevation of levels of transaminase and lactic acid dehydrogenase [LDH]; E87.8 Other disorders of electrolyte and fluid balance, not elsewhere classified; J96.02 Acute respiratory failure with hypercapnia; J44.9 Chronic obstructive pulmonary disease, unspecified; L40.9 Psoriasis, unspecified; I87.2 Venous insufficiency (chronic) (peripheral); G47.33 Obstructive sleep apnea (adult) (pediatric); K74.60 Unspecified cirrhosis of liver; J96.00 Acute respiratory failure, unspecified whether with hypoxia or hypercapnia; F17.200 Nicotine dependence, unspecified, uncomplicated; F10.20 Alcohol dependence, uncomplicated; E66.01 Morbid (severe) obesity due to excess calories; R50.9 Fever, unspecified; E55.9 Vitamin D deficiency, unspecified; I25.10 Atherosclerotic heart disease of native coronary artery without angina pectoris; Z83.3 Family history of diabetes mellitus; Z82.49 Family history of ischemic heart disease and other diseases of the circulatory system; Z71.6 Tobacco abuse counseling; Z87.11 Personal history of peptic ulcer disease; Z68.43 Body mass index [BMI] 50.0-59.9, adult; R65.21 Severe sepsis with septic shock

== ENCOUNTER → 2019-08-03 | Outpatient (CLI) | payer OTHER ==
[~2019-08-03] MED LIST changes: +CONSTULOSE10 GM/151 PO; +DIGOXIN125 MCG PO; +DOXYCYCLINE100 M3 PO; +HYDROCORTISONE10 MG PO; +K-TAB20 MEQ PO; +Lopressor25 MG PO; +NATURE'S BLEND100 M2 PO; +PANTOPRAZOLE SO40 MG PO; +XIFAXAN550 MG PO
[2019-08-03 16:34] LABS: HEMATOCRIT 32.8 % (42.0-52.0); HEMOGLOBIN 9.7 g/dl (14.0-18.0); MEAN CELL VOLUME 97.6 fl (80.0-94.0); MEAN CORPUSCULAR HGB 28.9 pg (27.0-31.0); MEAN CORPUSCULAR HGB CONC 29.6 g/dl (33.0-37.0); MEAN PLATELET VOLUME 10.2 fl (9.6-12.3); PLATELET COUNT AUTOMATED 43 10*3/uL (130-400); RED BLOOD COUNT 3.36 10*6/uL (4.50-5.90); RED CELL DISTRI WIDTH 17.1 % (0-14.5); WHITE BLOOD COUNT 2.7 10*3/uL (4.8-10.8)
[2019-08-03 17:00] LABS: PLATELET SUFFICIENCY LOW (NORMAL); TOTAL CELLS COUNTED 100 #CELLS
[2019-08-03 17:01] LABS: OVALOCYTES FEW
[2019-08-03 17:08] LABS: ALKALINE PHOSPHATASE 107 U/L (45-117); BUN 38 mg/dl (7-24); CHOLESTEROL 114 mg/dL (<200); HDL CHOLESTEROL 52 mg/dl (40-60); IRON 60 ug/dL (65-175); LDL CHOLESTEROL 48 mg/dL (9-159); TOTAL IRON BINDING CAPACITY 398 ug/dl (250-450); TOTAL PROTEIN 8.9 gm/dL (6.4-8.2); TRIGLYCERIDES 70 mg/dl (<150); VLDL CHOLESTEROL 14 mg/dL (6-40)
[2019-08-03 17:11] LABS: CREATININE 1.43 mg/dL (0.70-1.30); SODIUM 138 mmol/L (136-145)
[2019-08-03 17:12] LABS: CHLORIDE 99 mmol/L (98-107); POTASSIUM 5.4 mmol/L (3.5-5.1); SGOT/AST 83 IU/L (3-35); SGPT/ALT 28 U/L (12-78)
== END | disposition home or self-care (01) ==
LOC: LAB 15:48
PROVIDERS: Nurse Practitioner Family
DX: I10 Essential (primary) hypertension (principal); J44.9 Chronic obstructive pulmonary disease, unspecified; I48.91 Unspecified atrial fibrillation; I87.2 Venous insufficiency (chronic) (peripheral); E27.40 Unspecified adrenocortical insufficiency; K26.4 Chronic or unspecified duodenal ulcer with hemorrhage; K70.30 Alcoholic cirrhosis of liver without ascites; D69.6 Thrombocytopenia, unspecified; E87.1 Hypo-osmolality and hyponatremia; E66.01 Morbid (severe) obesity due to excess calories; D72.819 Decreased white blood cell count, unspecified; E72.20 Disorder of urea cycle metabolism, unspecified; R57.0 Cardiogenic shock; R26.89 Other abnormalities of gait and mobility; R94.4 Abnormal results of kidney function studies; Z68.43 Body mass index [BMI] 50.0-59.9, adult

== ENCOUNTER 2019-08-13 18:10 | Inpatient (IN) | payer OTHER ==
[~2019-08-13] VITALS: Ht 160 cm; Wt 151.7 kg
[2019-08-13] VITALS (14 sets, daily range): BP systolic 84–132; BP diastolic 25–58
[~2019-08-13 18:10] MED LIST changes: -K-TAB20 MEQ PO
[2019-08-13 18:39] LABS: ABG HCO3 33.1 mmol/l (22-26); ABG O2 SATURATION 99.9 % (95-97); ARTERIAL BLOOD GAS PCO2 60.1 mmHg (35-45); ARTERIAL BLOOD GAS PH 7.363 (7.35-7.45)
--- NOTE | 2019-08-13 18:44 | NUR ---
PLACED PATIENT ON BIPAP 16/6, 40%O2, SPO2 100%, 561, RR 32. WILL CONTINUE TO MONITOR
[2019-08-13 18:49] LABS: BASO % 0.4 % (0.0-1.0); EOS # 0.1 10*3/uL (0.0-0.4); EOS % 1.1 % (1.0-4.0); HEMATOCRIT 32.8 % (42.0-52.0); HEMOGLOBIN 9.9 g/dl (14.0-18.0); LYMPH # 0.7 10*3/uL (1.3-4.4); MEAN CELL VOLUME 96.2 fl (80.0-94.0); MEAN CORPUSCULAR HGB CONC 30.2 g/dl (33.0-37.0); MEAN PLATELET VOLUME 10.6 fl (9.6-12.3); MONO # 0.3 10*3/uL (0.1-1.0); MONO % 3.5 % (3.0-9.0); NEUT # 6.9 10*3/uL (2.3-7.9); NEUT % 85.7 % (47.0-73.0); PLATELET COUNT AUTOMATED 52 10*3/uL (130-400); RED BLOOD COUNT 3.41 10*6/uL (4.50-5.90); RED CELL DISTRI WIDTH 17.6 % (0-14.5)
[2019-08-13 18:57] LABS: ACT PARTIAL THROMBO TIME 31.5 SECONDS (20.0-32.1); INTERNATIONAL NORM RATIO 1.5 (2.0-3.5)
--- NOTE | 2019-08-13 18:59 | NUR ---
PATIENT WAS STARTED ON A CARDIZEM GTT AND CONT BP EVERY 5 MIN. THE PATIENT AT THIS TIME IS TOLERATING THE MEDICATION WELL. SEE VITALS FOR HX
[2019-08-13 19:03] LABS: ALBUMIN 2.8 gm/dl (3.1-4.5); ALKALINE PHOSPHATASE 107 U/L (45-117); BUN 24 mg/dl (7-24); CHLORIDE 98 mmol/L (98-107); CREATININE 1.27 mg/dL (0.70-1.30); POTASSIUM 3.5 mmol/L (3.5-5.1); SGOT/AST 37 IU/L (3-35); SGPT/ALT 22 U/L (12-78); SODIUM 137 mmol/L (136-145)
[2019-08-13 19:06] LABS: TROPONIN I 0.102 ng/ml (<0.045)
--- NOTE | 2019-08-13 19:09 | NUR ---
PATIENT CRITICAL TROP OF 0.102 WAS NOTIFIED TO THE ED DOC.
--- NOTE | 2019-08-13 20:11 | NUR ---
PATIENT REFUSING WOUND PHOTOS OF COCCYX.
--- NOTE | 2019-08-13 21:05 | NUR ---
A 53, admitted to ICCU, under the services of JOYCE Bermeo DO with a diagnosis of PNEUMONIA RESP FAILURE HYPERCAPNIA. Chief complaint is SOB SINCE TODAY. Patient arrived via stretcher from ER. Monitor applied. Initial assessment completed. Vital signs taken and recorded. JOYCE BERMEO DO notified of admission to the unit. Orders received. See assessment for past medical history, medications and allergies. Patient and/or family oriented to unit. [facility] ICCU visitation policy reviewed. Clothing/patient valuable form completed. GIUSEPPE LONGO
--- NOTE | 2019-08-13 21:51 | NUR ---
MEDS UPDATED ACCORDING TO MED HISTORY IN COMPUTER THAT HAS BEEN FILLED RECENTLY. PATIENT DOES NOT KNOW HIS HOME MEDS AT THIS TIME. WILL CALL AND VERIFY HOME MEDS WITH PHARMACY TOMORROW.
[2019-08-14] VITALS (95 sets, daily range): BP systolic 86–140; BP diastolic 29–73
[2019-08-14 00:07] LABS: ABG BASE EXCESS 7.2 mmol/L (-2.0-2.0); ABG HCO3 32.1 mmol/l (22-26); ABG O2 SATURATION 98.4 % (95-97); ARTERIAL BLOOD GAS PCO2 54.6 mmHg (35-45); ARTERIAL BLOOD GAS PH 7.396 (7.35-7.45)
--- NOTE | 2019-08-14 03:39 | NUR ---
PATIENTS HEART RATE IN THE 70'S-80'S CALLED DOCTOR OLESYA TO SEE IF HE WANTED DIG GIVEN HE SAID NO HOLD IT FOR NOW.
--- NOTE | 2019-08-14 04:29 | NUR ---
CONSULT CALLED TO DOCTOR BILLS SAID HE WILL SEE THE PATIENT TOMORROW
--- NOTE | 2019-08-14 04:29 | NUR ---
DOCTOR OLESYA MADE AWARE THAT DOCTOR JAME IS OUT OF TOWN TILL FRIDAY AND IS TO ONLY BE CALLED IN EMERGENCIES. SO CONSULT WAS NOT CALLED.
[2019-08-14 04:55] LABS: BASO % 0.4 % (0.0-1.0); EOS # 0.1 10*3/uL (0.0-0.4); EOS % 1.1 % (1.0-4.0); HEMATOCRIT 30.1 % (42.0-52.0); HEMOGLOBIN 9.1 g/dl (14.0-18.0); LYMPH % 9.1 % (27.0-41.0); MEAN CELL VOLUME 95.9 fl (80.0-94.0); MEAN CORPUSCULAR HGB CONC 30.2 g/dl (33.0-37.0); MEAN PLATELET VOLUME 10.9 fl (9.6-12.3); MONO # 0.7 10*3/uL (0.1-1.0); MONO % 6.2 % (3.0-9.0); NEUT # 8.9 10*3/uL (2.3-7.9); NEUT % 82.8 % (47.0-73.0); PLATELET COUNT AUTOMATED 56 10*3/uL (130-400); RED BLOOD COUNT 3.14 10*6/uL (4.50-5.90); WHITE BLOOD COUNT 10.7 10*3/uL (4.8-10.8)
[2019-08-14 05:03] LABS: INTERNATIONAL NORM RATIO 1.7 (2.0-3.5)
[2019-08-14 05:11] LABS: ALBUMIN 2.2 gm/dl (3.1-4.5); CREATININE 1.55 mg/dL (0.70-1.30); POTASSIUM 3.5 mmol/L (3.5-5.1); TOTAL PROTEIN 6.8 gm/dL (6.4-8.2)
[2019-08-14 05:21] LABS: DIGOXIN 0.69 ng/ml (0.8-2.0)
--- NOTE | 2019-08-14 07:30 | NUR ---
PT UP IN RECLINER, LEVAPHED AT 20, TITRATED TO 18-SEE VS- AWAKE AND ALERT AND ORIENTED, PLEASANT AND COOPERATIVE, RIJ SECURE, ALTAMIRANO PATENT, PT WITH CHELO LOWER LEG SKIN CHANGES OF CHRONIC PVD
--- NOTE | 2019-08-14 12:09 | NUR ---
PT REFUSING DA AT THIS TIME. RN AWARE. RR 32 HR 100 SPO2 100 VIA 2 L NC. RESPS UNLABORED. PT OOB IN CHAIR.
--- NOTE | 2019-08-14 13:51 | NUR ---
TO [facility] X 2 ASSIST FOR SMALL LIQUID BROWN BM
--- NOTE | 2019-08-14 15:30 | NUR ---
[facility]S RECONCILED WITH LIST FROM CRISTIANO CRUZ, RESIDENT UPDATED
[2019-08-14] MEDS ORDERED: K-TAB20 MEQ PO (16:51)
--- NOTE | 2019-08-14 20:32 | NUR ---
REMAINS UP IN RECLINER CHAIR AT BEDSIDE. APPEARS TO BE SLEEPING. BIPAP INTACT WITH 40% FIO2. PULSE OX 100%. RIJ MLC INTACT. LEVOPHED GTT CONT. SEE INTERVENTION SCREEN FOR Q15MIN BP'S. NO DISTRESS NOTED. NO C/O'S PAIN OR DISCOMFORT VOICED. ALTAMIRANO PATENT AND DRAINING CLEAR RENO URINE. 3+ EDEMA CONT OF BILATERAL LOWER EXTREMITIES.
--- NOTE | 2019-08-14 22:09 | NUR ---
REMAINS SLEEPING IN RECLINER WITH BIPAP INTACT.
--- NOTE | 2019-08-14 22:47 | NUR ---
Patient taken off of NIV at this time per his request. Resting comfortably on a 2LNC, SPO2: 97%
[2019-08-15] VITALS (96 sets, daily range): BP systolic 11–140; BP diastolic 33–73
--- NOTE | 2019-08-15 02:20 | NUR ---
08/14/19 2300 PT PLACED ON VIA NC AT 2L. PULSE OX 100%. 0210 PT REQUESTING REAPPLICATION OF BIPAP. PULSE OX 89%. RESPIRATORY THERAPY BEEPED AND WILL BE UP.
--- NOTE | 2019-08-15 04:13 | NUR ---
REMAINS SLEEPING IN RECLINER CHAIR WITH BIPAP INTACT.
[2019-08-15 05:25] LABS: ALBUMIN 2.2 gm/dl (3.1-4.5); ALKALINE PHOSPHATASE 75 U/L (45-117); BUN 24 mg/dl (7-24); CHLORIDE 100 mmol/L (98-107); CREATININE 1.41 mg/dL (0.70-1.30); POTASSIUM 3.3 mmol/L (3.5-5.1); SGOT/AST 30 IU/L (3-35); SGPT/ALT 17 U/L (12-78); SODIUM 137 mmol/L (136-145)
[2019-08-15 06:07] LABS: HEMATOCRIT 29.5 % (42.0-52.0); MEAN CELL VOLUME 95.5 fl (80.0-94.0); MEAN CORPUSCULAR HGB 29.1 pg (27.0-31.0); MEAN CORPUSCULAR HGB CONC 30.5 g/dl (33.0-37.0); MEAN PLATELET VOLUME 11.1 fl (9.6-12.3); PLATELET COUNT AUTOMATED 48 10*3/uL (130-400); RED BLOOD COUNT 3.09 10*6/uL (4.50-5.90); RED CELL DISTRI WIDTH 17.8 % (0-14.5); WHITE BLOOD COUNT 6.9 10*3/uL (4.8-10.8)
--- NOTE | 2019-08-15 06:09 | NUR ---
BIPAP INTACT. PULSE OX 98%. LEVOPHED GTT CONT. NO DISTRESS NOTED. CONDITION GUARDED.
[2019-08-15 06:52] LABS: OVALOCYTES FEW; PLATELET SUFFICIENCY LOW (NORMAL); TOTAL CELLS COUNTED 100 #CELLS
--- NOTE | 2019-08-15 07:58 | NUR ---
07:30 PT CURRENTLY ON BIPAP. OOB IN CHAIR. RESPS REGULAR AND UNLABORED.SYSTEM CHECKED AND FX'ING. PT TAKEN OFF OF BIPAP, PLACED ON 2 L NC. RESPS REMAIN REGULAR. SPO2 95 HR 95 RR 25.
--- NOTE | 2019-08-15 09:27 | NUR ---
RESTING QUIETLY, STATES HE FEELS MUCH BETTER THAN YESTERDAY, SLOWLY TITRATING LEVAPHED DOWN
--- NOTE | 2019-08-15 10:12 | NUR ---
pharmacy made aware of elevated vanco trough 24.7
--- NOTE | 2019-08-15 13:10 | NUR ---
REMAINS IN RECLINER, DR BILLS IN TO SEE PT, RESP EASY, "IM BREATHING BETTER" IN [facility], [facility] APPETITE TODAY
--- NOTE | 2019-08-15 15:55 | NUR ---
LEVAPHED AT 3 MCG
--- NOTE | 2019-08-15 20:14 | NUR ---
5 UP IN RECLINER CHAIR. ALERT AND PLEASANT. NO DISTRESS NOTED. NO C/O'S PAIN OR DISCOMFORT VOICED. STATES " I FEEL BETTER." RIJ MLC INTACT. LEVOPHED GTT CONT AT 3MICS. PULSE OX 100% ON 2L. ALTAMIRANO PATENT AND DRAINING CLEAR RENO URINE. EDEMA CONT OF LOWER EXTREMITIES. REFUSED BATH AT PRESENT TIME. STATES " I WANT TO WAIT UNTIL MORNING." WILL REASSESS. CALL LIGHT IN REACH.
--- NOTE | 2019-08-15 22:06 | NUR ---
REMAINS SITTING UP IN RECLINER CHAIR WATCHING TV.
[2019-08-16] VITALS (19 sets, daily range): BP systolic 105–140; BP diastolic 44–76
--- NOTE | 2019-08-16 01:13 | NUR ---
UP TO BR FOR BM. NO SOB NOTED. PULSE OX 97% ON RA. BATH TAKEN AT BEDSIDE PER SELF. TOLERATED FAIR. BACK TO RECLINER CHAIR.
--- NOTE | 2019-08-16 02:04 | NUR ---
REMAINS SITTING IN RECLINER CHAIR WATCHING TV. REFUSING BIPAP AT PRESENT. WILL CONT TO MONITOR.
--- NOTE | 2019-08-16 03:00 | NUR ---
LEVOPHED GTT TITRATED OFF.
[2019-08-16 05:56] LABS: ALBUMIN 2.2 gm/dl (3.1-4.5); ALKALINE PHOSPHATASE 77 U/L (45-117); BUN 22 mg/dl (7-24); CHLORIDE 100 mmol/L (98-107); CREATININE 1.19 mg/dL (0.70-1.30); POTASSIUM 3.4 mmol/L (3.5-5.1); SGOT/AST 28 IU/L (3-35); SGPT/ALT 15 U/L (12-78); SODIUM 137 mmol/L (136-145); TOTAL PROTEIN 7.1 gm/dL (6.4-8.2)
[2019-08-16 06:05] LABS: HEMATOCRIT 27.9 % (42.0-52.0); HEMOGLOBIN 8.5 g/dl (14.0-18.0); MEAN CELL VOLUME 96.5 fl (80.0-94.0); MEAN CORPUSCULAR HGB 29.4 pg (27.0-31.0); MEAN CORPUSCULAR HGB CONC 30.5 g/dl (33.0-37.0); MEAN PLATELET VOLUME 11.1 fl (9.6-12.3); RED BLOOD COUNT 2.89 10*6/uL (4.50-5.90); RED CELL DISTRI WIDTH 17.7 % (0-14.5); WHITE BLOOD COUNT 2.9 10*3/uL (4.8-10.8)
--- NOTE | 2019-08-16 06:06 | NUR ---
UP TO BSC FOR BM. HR ELEVATED WITH ACTIVITY. REMAINS A-FIB. RIJ MLC INTACT. ALTAMIRANO PATENT. 02 INTACT. REMAINS WITHOUT C/O'S. ALERT AND ORIENTED. CONDITION GUARDED.
[2019-08-16 06:19] LABS: PLATELET COUNT AUTOMATED 33 10*3/uL (130-400)
--- NOTE | 2019-08-16 06:27 | NUR ---
HR IN THE 120'S -140'S. ORDER PLACED FOR 12.5MG PO LOPRESSOR BID FROM ORDER OF DR. BILLS - ONCE LEVOHPED GTT WAS OFF.
[2019-08-16 06:35] LABS: PLATELET SUFFICIENCY LOW (NORMAL); TOTAL CELLS COUNTED 100 #CELLS
[2019-08-16 06:38] LABS: INTERNATIONAL NORM RATIO 1.5 (2.0-3.5)
--- NOTE | 2019-08-16 07:48 | NUR ---
MICHEAL GARNETT [id number] Please refer to the physician's history and physical for past medical history, comorbid conditions, and allergies. Diagnosis: RESIRTORY FAILURE WITH HYPERCAPNIA,PNEUMONIA Sachin Score: 17,LOW OR NO RISK WOUND DESCRIPTIONS: Wound Number: 1 Location of the wound: INNER RIGHT BUTTOCK/CLEFT Type of wound: STAGE 2 Thickness: Partial Size: 5.9cm X 0.1cm X 0.1cm Tunneling: NONE Undermining: NONE Sinus Tract: NONE Presence of Exudate: Sanguineous Amount: Light Color: Red Odor: None Periwound Skin Appearance: Normal Wound edges: APPROXIMATED Pain (associated with wound): DENIED AT TIME OF ASSESSMENT How does patient state this happened? PATIENT UNSURE HOW THIS HAPPENED BUT STATES THAT IT WAS NOTICED AFTER USING THE RESTROOM FREQUENTLY. Surface the patient is resting on: Position Pro SKIN PREVENTION RECOMMENDATION: 1. Pressure redistribution support surface as appropriate 2. Elevate heels 3. Remove boots/TEDS every shift and reapply 4. Head of bed 30 degrees as tolerated 5. Assess nutrition and hydration 6. Manage moisture 7. Avoid the use of containment devices while in bed 8. Use absorptive products on surfaces limit layers of linens on bed 9. Turn and reposition every 1-2 hours in bed and every 1 hour in chair as tolerated 10. Weight shifts every 15 minutes while up in chair 11. Offloading with pillows or device to keep heels elevated off bed 12. Monitor skin at least every shift 13. Inspect under medical devices twice a day WOUND TREATMENT RECOMMENDATIONS: CONTINUE NYSTATIN POWDER ORDER.
--- NOTE | 2019-08-16 08:16 | NUR ---
Awake and alert. States washed up in bathroom last night and is hoping to move to a private room today. Discussed fluid restriction w/ pt. who stated that he had friends over and drank and partied, w/ o monitoring fluid intake. stating" its all my fault im here". On assessment R lung base is very diminished while left is clear,. AF is at a controlled rate in the 90"s. Pt. is currently up in chair, with reddness and edema of BLE Rt. > left. reddness to rt. inner thigh . Pt. states " my legs are always like this" . Wound care in to evaulate.
--- NOTE | 2019-08-16 09:12 | NUR ---
Dr. Nagy in to [facility]. Assisted up to BSC for small soft BM. Pericare given. cleft reddened and nystatin was applied.
--- NOTE | 2019-08-16 10:05 | NUR ---
Dr. Carey in to [facility]. Orders recieved.
--- NOTE | 2019-08-16 10:30 | NUR ---
Carbide Tool Die Maker in to talk to patient. Patient states lives at home with his son. There are 6 steps in the home. Physician: Chris Corcoran Pharmacy: [facility] Home health services: none Patient's level of ADLs: INDEPENDENT Patient has working utilities: yes DME: pulse ox, blood pressure cuff Follow-up physician's appointment after d/c: will be made by the hospitalist nurse director upon discharge Does patient want to access PORTAL?: no Discharge plan discussed with patient. He lives at home with his son. He is independent in ADLs and ambulation. He drives. Discussed home health care services and he denies any home needs. When medically stable he will be discharged to home. His son will provide transportation on discharge. Receiving IV bumex for mild edema, treating pneumonia with vancomycin, levaquin, and zosyn. JANIE ZACARIAS
--- NOTE | 2019-08-16 11:54 | NUR ---
Dr. Singh in to [place].
--- NOTE | 2019-08-16 15:38 | NUR ---
Dr. Singh was notified of consult. Orders were recieved.
--- NOTE | 2019-08-16 15:50 | NUR ---
SPO2 VIA 4L NC IS 98% O2 DECREASED TO 3 L NC.
--- NOTE | 2019-08-16 18:15 | NUR ---
PATIENT TRANSFERRED TO FLOOR, ORIENTED TO ROOM, REPORT RECEIVED.
--- NOTE | 2019-08-16 19:15 | NUR ---
ARRIVED ON SHIFT, INTRODUCED TO PATIENT, WHITE BOARD UPDATED, NO NEEDS VOICED A THIS TIME.
--- NOTE | 2019-08-16 22:38 | NUR ---
24 HR chart check completed.
[2019-08-17] VITALS: BP 140/76
[2019-08-17 06:27] LABS: HEMATOCRIT 29.2 % (42.0-52.0); HEMOGLOBIN 8.9 g/dl (14.0-18.0); MEAN CELL VOLUME 95.1 fl (80.0-94.0); MEAN CORPUSCULAR HGB CONC 30.5 g/dl (33.0-37.0); MEAN PLATELET VOLUME 10.5 fl (9.6-12.3); PLATELET COUNT AUTOMATED 33 10*3/uL (130-400); RED BLOOD COUNT 3.07 10*6/uL (4.50-5.90); RED CELL DISTRI WIDTH 17.9 % (0-14.5)
[2019-08-17 06:36] LABS: ALBUMIN 2.4 gm/dl (3.1-4.5); ALKALINE PHOSPHATASE 94 U/L (45-117); BUN 25 mg/dl (7-24); CHLORIDE 100 mmol/L (98-107); CREATININE 1.41 mg/dL (0.70-1.30); POTASSIUM 3.8 mmol/L (3.5-5.1); SGOT/AST 27 IU/L (3-35); SGPT/ALT 19 U/L (12-78); SODIUM 137 mmol/L (136-145); TOTAL PROTEIN 7.7 gm/dL (6.4-8.2)
[2019-08-17 06:58] LABS: OVALOCYTES FEW; PLATELET SUFFICIENCY LOW (NORMAL); TOTAL CELLS COUNTED 100 #CELLS
[2019-08-17 08:00] VITALS: BP 138/78
--- NOTE | 2019-08-17 08:26 | NUR ---
PATIENT WEIGHED ON DIFFERENT BEDS D/T TRANSFERRED FROM [facility] Y[facility]DAY. OBTAINED WEIGHT ON PORTABLE SCALE, ENCOURAGED PATIENT TO USE PORTABLE SCALE TOMORROW AM.
--- NOTE | 2019-08-17 09:00 | NUR ---
Cooperative Extension Agent in to see patient. He is sitting up in his bedside chair eating breakfast. No new needs or request at this time. He denies any home needs. When medically stable he will be discharged to home. Chest x-ray shows mild edema, treating with bumex. Dr. Singh and Dr. Carey following patient.
--- NOTE | 2019-08-17 11:53 | NUR ---
Nutritional Support Services Note: Appetite is good for meals, he is eating 100% of all meals. Cardiac diet as ordered. Pt is weighed daily. Ht.5'3 Wt.333# currently. 9# increase since admission weight. Will continue to follow. Wound noted being treated. No nutrition intervention needed at this time. Will follow as needed. He has an understanding of the need for compliance to diet. Patsy Lema Rdn Ld
[2019-08-17 12:00] VITALS: BP 126/75
[2019-08-17 16:00] VITALS: BP 137/60
--- NOTE | 2019-08-17 19:00 | NUR ---
ARRIVED ON SHIFT. INTRODUCED TO PATIENT, WHITE BOARD UPDATED, NO NEEDS VOICED AT THIS TIME. REPORT RECEIVED. MICHAEL MEZAN, RN
--- NOTE | 2019-08-17 19:41 | NUR ---
24 HR chart check completed.
[2019-08-17 20:00] VITALS: BP 126/71
[2019-08-18] VITALS: BP 122/77
--- NOTE | 2019-08-18 05:37 | NUR ---
PATIENT SLEPT IN [facility], HE WAS UP MULTIPLE TIMES, HE VERSED HE FEELS LIKE HE IS GOING TO , BEDCAUSE HE KEEPS GAINING WEIGHT. HE IS REQUESTING TO SEE DR. CRYSTAL TODAY.SPOKE WITH DR. DACOSTA WHO STSTED HE WILL PASS THE MESSAGE ALONG.
[2019-08-18 07:25] LABS: HEMATOCRIT 31.9 % (42.0-52.0); HEMOGLOBIN 9.6 g/dl (14.0-18.0); MEAN CELL VOLUME 97.3 fl (80.0-94.0); MEAN CORPUSCULAR HGB 29.3 pg (27.0-31.0); MEAN CORPUSCULAR HGB CONC 30.1 g/dl (33.0-37.0); MEAN PLATELET VOLUME 10.3 fl (9.6-12.3); PLATELET COUNT AUTOMATED 33 10*3/uL (130-400); RED BLOOD COUNT 3.28 10*6/uL (4.50-5.90); RED CELL DISTRI WIDTH 17.8 % (0-14.5); WHITE BLOOD COUNT 3.1 10*3/uL (4.8-10.8)
[2019-08-18 07:52] LABS: CREATININE 1.54 mg/dL (0.70-1.30); POTASSIUM 3.9 mmol/L (3.5-5.1)
[2019-08-18 08:00] VITALS: BP 132/60
[2019-08-18 08:11] LABS: PLATELET SUFFICIENCY LOW (NORMAL); TOTAL CELLS COUNTED 100 #CELLS
[2019-08-18 08:12] LABS: ROULEAUX MODERATE
--- NOTE | 2019-08-18 09:07 | NUR ---
Process Development Associate in to see patient. He is sitting up in his bedside chair without distress noted. He is concerned about his weight gain and not getting better. He states he has not been weighed on the same scales but it was the same scale yesterday and today and he gained a pound. He states Dr. Cai did talk to him this morning and he feels better about his concerns. He is visibly shaking and states he feels like he is going to explode. Discussed if patient has ever taken nerve medication previously. He took Xanax at one time but never got the medication refilled. Asked if he would like CM to call the physician to see if something could be ordered for his nerves and he stated yes. Notified Dr. Cai of patient's request for something for his nerves. When medically stable he will be discharged to home. He denies any home needs.
[2019-08-18 12:00] VITALS: BP 115/69
[2019-08-18 15:46] VITALS: BP 99/54
--- NOTE | 2019-08-18 18:34 | NUR ---
PATIENT STATES WANTS MLC REMOVED, IS LEAVING TOMORROW, TAKING SHOWER IN THE MORNING, SON IS COMING TO GET HIM EARLY, STATES WILL BE TAKING OFF MONITOR IN AM, NOT RECEIVING ANY IV'S, DOES NOT WANT. MLC REMOVED.
--- NOTE | 2019-08-18 19:10 | NUR ---
ARRIVED ON SHIFT, INTRODUCED TO PATIENT, DENIES ANY NEEDS AT THIS TIME, HE VERSED HE DOESN'T FEEL HE WILL BE READY TO GO HOME IN THE MORNING. WHITE BOARD UPDATED.
[2019-08-18 20:00] VITALS: BP 117/73
--- NOTE | 2019-08-18 20:28 | NUR ---
24 HR chart check completed.
[2019-08-19] VITALS: BP 107/65
--- NOTE | 2019-08-19 06:19 | NUR ---
CALL PLACED TO DR. HARE PATIENT PER PATIENT REQUEST, HE WANTED TO TAKE SHOWER. OK TO TAKE OFF MONITOR TO SHOWER.
[2019-08-19 08:00] VITALS: BP 106/49
[2019-08-19 08:55] VITALS: BP 112/58
--- NOTE | 2019-08-19 10:00 | NUR ---
Discharge instructions reviewed with patient/family. Patient receptive and verbalizes understanding. Follow-up care arranged. Written instructions given to patient/family. HARMAN ISAACS
== END 2019-08-19 10:35 | disposition home or self-care (01) | DRG 720 ==
LOC: ED → EDHOLD 19:27 → ICCU 19:27 → 4E 19:27 → ICCU 20:09 → 4E 08-16 17:37
PROVIDERS: Emergency Medicine; Internal Medicine; Student in an Organized Health Care Education/Training Program; ADMIT Internal Medicine
PROC: 5A09357 Assistance with Respiratory Ventilation, Less than 24 Consecutive Hours, Continuous Positive Airway Pressure (ICD-10-PCS; 2019-08-13)
PROC: 02HV33Z Insertion of Infusion Device into Superior Vena Cava, Percutaneous Approach (ICD-10-PCS; principal; 2019-08-14)
PROC: 5A09357 Assistance with Respiratory Ventilation, Less than 24 Consecutive Hours, Continuous Positive Airway Pressure (ICD-10-PCS; 2019-08-14)
PROC: 5A09357 Assistance with Respiratory Ventilation, Less than 24 Consecutive Hours, Continuous Positive Airway Pressure (ICD-10-PCS; 2019-08-15)
DX: A41.9 Sepsis, unspecified organism (principal); J18.9 Pneumonia, unspecified organism; I48.91 Unspecified atrial fibrillation; D53.9 Nutritional anemia, unspecified; D69.6 Thrombocytopenia, unspecified; I87.2 Venous insufficiency (chronic) (peripheral); E66.01 Morbid (severe) obesity due to excess calories; E55.9 Vitamin D deficiency, unspecified; K29.70 Gastritis, unspecified, without bleeding; E44.0 Moderate protein-calorie malnutrition; I25.10 Atherosclerotic heart disease of native coronary artery without angina pectoris; F10.20 Alcohol dependence, uncomplicated; I95.9 Hypotension, unspecified; D50.0 Iron deficiency anemia secondary to blood loss (chronic); K70.30 Alcoholic cirrhosis of liver without ascites; I48.19 Other persistent atrial fibrillation; R65.21 Severe sepsis with septic shock; J96.01 Acute respiratory failure with hypoxia; I11.0 Hypertensive heart disease with heart failure; I50.33 Acute on chronic diastolic (congestive) heart failure; I21.A1 Myocardial infarction type 2; J44.0 Chronic obstructive pulmonary disease with (acute) lower respiratory infection; D61.818 Other pancytopenia; J96.02 Acute respiratory failure with hypercapnia; Z87.11 Personal history of peptic ulcer disease; Z68.43 Body mass index [BMI] 50.0-59.9, adult; Z83.3 Family history of diabetes mellitus; Z82.49 Family history of ischemic heart disease and other diseases of the circulatory system; Z91.14 Patient's other noncompliance with medication regimen

== ENCOUNTER → 2019-09-27 | Outpatient (CLI) | payer OTHER ==
[~2019-09-27] MED LIST changes: +K-TAB20 MEQ PO
[2019-09-27 11:14] LABS: HEMOGLOBIN 9.3 g/dl (14.0-18.0); MEAN CELL VOLUME 101.6 fl (80.0-94.0); MEAN CORPUSCULAR HGB 29.5 pg (27.0-31.0); MEAN CORPUSCULAR HGB CONC 29.1 g/dl (33.0-37.0); MEAN PLATELET VOLUME 11.5 fl (9.6-12.3); PLATELET COUNT AUTOMATED 39 10*3/uL (130-400); RED BLOOD COUNT 3.15 10*6/uL (4.50-5.90); RED CELL DISTRI WIDTH 18.9 % (0-14.5); WHITE BLOOD COUNT 3.1 10*3/uL (4.8-10.8)
[2019-09-27 11:33] LABS: OVALOCYTES FEW; PLATELET SUFFICIENCY LOW (NORMAL); TOTAL CELLS COUNTED 100 #CELLS
[2019-09-27 11:39] LABS: ALBUMIN 3.1 gm/dl (3.1-4.5); CREATININE 1.62 mg/dL (0.70-1.30); POTASSIUM 4.1 mmol/L (3.5-5.1); TOTAL PROTEIN 8.4 gm/dL (6.4-8.2)
[2019-09-28 12:04] LABS: MICRO ALBUMIN/CRE RATIO 203.8 (0.0-30.0)
== END | disposition home or self-care (01) ==
LOC: LAB 09:49
PROVIDERS: Nurse Practitioner Family
DX: I13.0 Hypertensive heart and chronic kidney disease with heart failure and stage 1 through stage 4 chronic kidney disease, or unspecified chronic kidney disease (principal); I50.9 Heart failure, unspecified; N18.9 Chronic kidney disease, unspecified; E88.09 Other disorders of plasma-protein metabolism, not elsewhere classified; D64.9 Anemia, unspecified; I48.91 Unspecified atrial fibrillation; K70.30 Alcoholic cirrhosis of liver without ascites; E72.20 Disorder of urea cycle metabolism, unspecified; E55.9 Vitamin D deficiency, unspecified; R31.9 Hematuria, unspecified; Z68.43 Body mass index [BMI] 50.0-59.9, adult